=== PATIENT | female | born 1945 | race Caucasian/White ===

== ENCOUNTER 2024-02-23 15:35 | Emergency (ER) | payer MEDICARE, OTHER, SELFPAY ==
[2024-02-23 15:39] VITALS: BMI 22.0
[2024-02-23 15:40] VITALS: BP 150/98
[2024-02-23 16:09] LABS: % Basophils 0.6 % (0-2); % Eosinophils 0.9 % (0-6); % Immature Granulocytes 0.2 % (0-0.5); % Lymphocytes 16.9 % (20.5-51.1); % Monocytes 11.1 % (1.7-9.3); % Neutrophils 70.3 % (42.2-75.2); Absolute Basophils 0.1 10^3/uL (0-0.2); Absolute Eosinophils 0.1 10^3/uL (0-0.7); Absolute Lymphocytes 1.5 10^3/uL (1.2-3.4); Absolute Neutrophils 6.1 10^3/uL (1.4-6.5); Hematocrit 40.6 % (37.0-47.0); Hemoglobin 13.4 g/dL (12.0-16.0); Mean Corpuscular Hgb 31.4 pg (27.0-31.0); Mean Corpuscular Volume 95.1 fL (81.0-99.0); Mean Platelet Volume 9.6 fL (7.4-10.4); Nucleated Red Blood Cells % 0 %; Platelet Count 238 10^3/uL (130-400); Red Blood Cell Count 4.27 10^6/uL (4.20-5.40); Red Cell Dist. Width 12.5 % (11.5-14.5); White Blood Cell Count 8.7 10^3/uL (4.8-10.8)
[2024-02-23 16:25] LABS: Blood Urea Nitrogen 29 mg/dl (7-17); Calcium 10.2 mg/dl (8.4-10.2); Carbon Dioxide 25 mmol/L (22-30); Chloride 108 mmol/L (98-107); Estimated Creatinine Clearance 47 ml/min; Glucose 103 mg/dl (70-99); Potassium 4.7 mmol/L (3.5-5.1); Sodium 139 mmol/L (135-145); eGFR > 60.00
[2024-02-23 16:26] LABS: Alcohol None Detected
--- NOTE | 2024-02-23 18:46 | ED.GENMED ---
Addendum entered and electronically signed by Jesus Saleem PA-C 02/26/24 08:57:
On cephalexin, appropriate per C&S
Original Note:
History of Present Illness
General
Chief Complaint: Psychiatric Problem
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
Exam Limitations: none
Time Seen by Provider: 02/23/24 17:55
Travel History
Have you had any contact with someone who has COVID-19?: No
Do you have any symptoms of coronavirus? Fever > 100 degrees, chills, cough, shortness of breath, sore throat, loss of taste or smell, muscle aches, or headache?: No
History of Present Illness
History of Present Illness:
This is a 78 year old female that is brought in by family with c/o Manic behavior. Spoke with Nurse Gould that is the directed of the aid service that helps care with patient. States that the pain has had periods of Paranoid behavior and manic
episodes. State that she is going after people, chocking herself, not taking her medication. States that they wanted to patient to go to [facility] but the was unable to get patient there. States that she is not eating,
resisting bathing. States that she has chronic depression. States that the police have been to the house 4 times due to her accusing her but this has been determined untrue. Patient denies that she is not taking her medication and that she
is not eating. States that she can speak for herself. Patient states that she has felt SOB and has diarrhea. Denies any fever, chills, chest pain, abd pain, nausea, vomiting, headache, dizziness, urinary burning.
Past History
Past History
ED Past Medical History: HTN, Hypercholesterolemia, Hypothyroidism and Other (bowel obstruction medically treated, Dry eyes, CBS Type of Parkinsons)
ED Past Surgical History: Gynecological (hysterectomy)
Social History
Tobacco: Non-smoker
Alcohol: None
Personal:
Living: with family
Review of Systems
Review of Systems
All Other Systems: ROS reviewed and negative except as documented in HPI and ROS
Constitutional: Reports no symptoms; Denies fever or chills
EENT: Reports no symptoms
Respiratory: Reports trouble breathing; Denies cough
Cardiac: Reports no symptoms; Denies chest pain
ABD/GI: Reports diarrhea; Denies abdominal pain, nausea or vomiting
: Reports no symptoms; Denies dysuria, frequency or urgency
Musculoskeletal: Reports no symptoms
Skin: Reports no symptoms
Neurological: Reports no symptoms; Denies dizzy or headache
Psychiatric: Reports no symptoms
Phy Exam
General Physical Exam
General Presentation: no apparent distress
General age: appears stated age
General Skin: warm and dry
General Habitus: debilitated and elderly
General Mental: alert
General Hydration: dry mucous membranes
ENT Exam
ENT Exam: TM's normal, pharynx normal and neck supple
Eye Exam
Eye Exam: EOMI
Cardiovascular Exam
Cardiovascular Exam: regular rate/rhythm, no edema and normal peripheral pulses
Pulmonary Exam
Pulmonary Exam: lungs clear, no respiratory distress, no rales, chest non tender, no crackles, no rhonchi, no wheezing and no cough
Gastrointestinal Exam
Gastrointestinal Exam: normal bowel sounds, non tender, soft, no organomegaly, no pulsatile mass and non distended
Musculoskeletal Exam
Musculoskeletal Exam: no edema and other (Contracture of left hand with limited arm movement)
Skin Exam
Skin Exam: normal color, warm/dry, no petechia and other (abrasion middle of back and left posterior shoulder)
Psychiatric Exam
Psychiatric Exam: normal mood/affect (Patient is cooperative and answering questions)
Course
Orders/Labs/Results
Orders:
Orders
02/23/24 15:47
EKG [Electrocardiogram (*1)] Urgent
Reason for Study: PreOp
02/23/24 15:48
EKG- Treatment ONCE
02/23/24 15:57
Alcohol Urgent
Basic Metabolic Panel Urgent
Complete Blood Count/With Diff Urgent
02/23/24 18:43
Crisis Consult Urgent
Reason for Consult: Manic, Paranoid,
02/23/24 18:45
0.9% Sodium Chloride 1000 ml [Nss] 1,000 ml IV BOLUS
02/23/24 19:32
Urinalysis Reflex To Culture Urgent
Date Specimen was Collected: 02/23/24
Time Specimen was Collected: 19:31
Urine Microscopic Reflex Cult Urgent
Urine Culture Urgent
JB Source: U
Specimen Description:
Date Specimen was Collected: 02/23/24
Time Specimen was Collected: 19:31
02/23/24 21:04
Cephalexin Monohydrate [Keflex] 500 mg PO NOW STA
Abnormal Lab Results
02/23/24 02/23/24
15:57 19:32
MCH 31.4 H pg
(27.0-31.0)
Absolute Monos (auto) 1.0 H 10^3/uL
(0.1-0.6)
Lymphocytes % 16.9 L %
(20.5-51.1)
Monocytes % 11.1 H %
(1.7-9.3)
Chloride 108 H mmol/L
(98-107)
BUN 29 H mg/dl
(7-17)
Glucose 103 H mg/dl
(70-99)
Urine Ketones 3+ A
(Negative)
Urine Nitrite (Reflex) Positive A
(Negative)
Urine Bilirubin 1+ A
(Negative)
Leukocyte Esterase Rfl 2+ A
(Negative)
Urine WBC (Reflex) 60-70 A /HPF
(0-5)
Urine Bacteria (Reflex) Many A
(Negative)
02/23/24 15:57
02/23/24 15:57
Dehydration. Glucose nonfasting. Negative for alcohol. Urine positive for infection.
Vital Signs
Initial and Last Documented VS:
Initial Vital Signs
Temp Pulse Resp BP Pulse Ox
98.5 F 82 16 150/98 98
02/23/24 15:40 02/23/24 15:40 02/23/24 15:40 02/23/24 15:40 02/23/24 15:40
Last Documented Vital Signs
Temp Pulse Resp BP Pulse Ox
98.5 F 72 18 138/78 95
02/23/24 15:40 02/23/24 22:55 02/23/24 22:55 02/23/24 22:55 02/23/24 22:55
MDM/Problems Addressed
Differential Diagnosis Includes:
Psychiatric problems,
MDM/Problems Addressed:
This is a 78 year old female that is brought in by family with c/o Psychiatric issues. Told by Bryanna ritchie Directer of the aid serves that helps care for patient that she has been having Manic episodes. States that she has been going after people,
trying to chock herself, not eating or taking baths.
Will check labs, urine and have Crisis see patient.
Back into see patient. Continue to wait on Crisis to see patient and . Explained that the patient has a urinary tract infection. Will start patient on an antibiotic.
Patient was seen by Crisis and they feel that this is more the case that the is unable to take care of the patient. at this time just wants to take the patient home. Encouraged home to follow up with the PCP and discussed the
[place]ibility [place] [facility] [place]. Patient will also be given a prescription for her UTi. Patient states that she has an appointment with her [facility] psych doctor tomorrow. Will discharge home.
Chronic conditions affecting care: Psychiatric illness
Acute Exacerbation and/or Progression of Chronic Illness: Psychiatric illness
*Pulse Oximetry
Patient hypoxic: no
*EKG
Interpreted by ED Provider?: Yes
Heart Rate: 72
Rate: normal
Rhythm: sinus
[place]: normal axis
Interval: normal interval
QRS Pattern: normal QRS
Ischemia: no ischemia
*Camera Engineer Interpretation
Rate: Camera Engineer- N/A
*Critical Care Note
Total Time (30-74mins, 75-104mins- exclusive of procedures): Not Applicable
ED Attending Note
-
Portions of this chart may have been created with voice recognition software.� Occasional wrong word or��sound alike� substitutions may have occurred due to the inherent limitations of voice recognition software.
Discharge Plan
Departure
Patient Disposition: Home (Routine Discharge)
Date of Disposition: 02/23/24
Time of Disposition: 21:58
Patient with high blood pressure during this ER visit?: Yes
Condition: Good
Covid-19: Not Applicable
Discharge Problem:
Acute UTI (urinary tract infection)
Instructions: Urinary Tract Infection, Adult ED, BLOOD PRESSURE
Prescriptions:
New
cephalexin 500 mg capsule
500 mg PO BID 7 Days Qty: 14 0RF
No Action
levothyroxine 50 MCG tablet
50 mcg PO DAILY
olmesartan-hydrochlorothiazide 1 EACH tablet
1 tab PO DAILY
aspirin 81 MG tablet,delayed release (DR/EC)
81 mg PO QPM
calcium carbonate [Oyster Shell Calcium 500] 500 MG tablet
500 mg PO DAILY
simvastatin 20 MG tablet
20 mg PO QPM
calcium carbonate [Antacid (calcium carbonate)] 1 TABLET tablet,chewable
1 tab PO Q4HPRN PRN (Reason: gerd)
simethicone [Gas-X Extra Strength] 125 MG tablet,chewable
125 mg PO TIDPRN PRN (Reason: gerd)
multivitamin with folic acid [Tab-A-Deepika] 1 TABLET tablet
1 tab PO DAILY
Azithromycin 250 MG Tablet
250 mg PO DAILY Qty: 4 0RF
Referrals:
Nader Huddleston MD [Family Provider] - Follow up in 2-3 days
Activity Restrictions/Additional Instructions:
As discussed, your blood work shows that you are dehydrated. Please increase your water intake to 8-8oz glasses daily. You also have a urinary tract infection. You have been given your first dose of antibiotic here and a prescription for home. You
have also been seen by Crisis here. Please follow up with the family doctor for recheck. IF YOU HAVE ANY OTHER CONCERNS PLEASE RETURN TO THE EMERGENCY ROOM.
Interventions
Interventions:
*Risk Screen - Suicide Last Done: 02/23/24 15:40
*General Assessment Last Done: 02/23/24 23:05
*Neglect/Abuse Screening Last Done: 02/23/24 15:40
ED- Fall Risk Assessment Last Done: 02/23/24 15:40
*ED COVID-19 Vaccine History Last Done: 02/23/24 23:05
*Nursing Disposition Last Done: 02/23/24 23:05
ED-Psychological Assessment Last Done: 02/23/24 20:13
Discharge Date and Time
Discharge Date/Time: 02/23/24 23:06
Print Language: NAURUAN
[2024-02-23] MEDS: NSS 1000 IV (19:31)
[2024-02-23 19:38] LABS: Urine Albumin Trace (Neg - Trace); Urine Bilirubin 1+ (Negative); Urine Character Slightly Cloudy (Clear); Urine Color Yellow; Urine Glucose Negative (Negative); Urine Ketone 3+ (Negative); Urine Leukocyte 2+ (Negative); Urine Nitrite Positive (Negative); Urine Occult Blood Negative (Negative); Urine Specific Gravity 1.025 (<1.030); Urine Urobilinogen 1+ (Neg - 1+)
[2024-02-23 19:43] LABS: Urine Red Blood Cell None Seen /HPF (0-2)
[2024-02-23 19:44] LABS: Urine Bacteria Many (Negative); Urine White Cell 60-70 /HPF (0-5)
[2024-02-23 20:13] VITALS: BP 140/78
[2024-02-23] MEDS: KEFLEX 500 MG PO (21:24)
[2024-02-23 22:55] VITALS: BP 138/78
== END 2024-02-23 23:06 | disposition home or self-care (01) ==
LOC: EMR 15:35
PROVIDERS: Clinical Nurse Specialist Family Health; Emergency Medicine; EMERGENCY PHYSICIAN Emergency Medicine; FAMILY PHYSICIAN Internal Medicine
DX: N39.0 Urinary tract infection, site not specified (principal); I10 Essential (primary) hypertension
CPT/HCPCS: 99284; 96360; 80048; 81003; 81015; 82077; 85025; 87086; 87088; 87186; 93005

== ENCOUNTER 2024-11-13 11:06 | Emergency (ER) | payer MEDICARE, OTHER, SELFPAY ==
[2024-11-13 11:19] VITALS: BP 146/64; BMI 18.7
--- NOTE | 2024-11-13 11:33 | EDRN ---
awaiting for call back from [facility], the pts is now at the pts bedside and per the he stated that staff from [facility] called him and stated that the pt was found out of her w/c and called EMS for a fall, the pt
is resting in stretcher in the lowest position, side rails up x2, call ho within reach, HOB elevated, no s/s of distress, the pts states that she has a 'special diet and eats pureed/chopped food and thickened liquids'
--- NOTE | 2024-11-13 11:40 | EDRN ---
staff from [facility] called this RN back and stated that staff there saw the pt falling out of her w/c and they ran toward her to try to help her but the pt fell out of her w/c and did hit her head, this RN notified Dr. Mcdermott who is
currently at the pts bedside
--- NOTE | 2024-11-13 11:45 | ED.GENMED ---
History of Present Illness
General
Chief Complaint: Fall
Source: patient and spouse
Exam Limitations: non verbal-adult
Time Seen by Provider: 11/13/24 11:40
History of Present Illness
History of Present Illness:
See MDM
Past History
Past History
ED Past Medical History: HTN, Hypercholesterolemia, Hypothyroidism and Other (bowel obstruction medically treated, Dry eyes, CBS Type of Parkinsons)
ED Past Surgical History: Gynecological (hysterectomy)
Social History
Tobacco: Non-smoker
Alcohol: None
Personal:
Living: with family
Phy Exam
Physical Exam
Physical Exam:
See MDM
Course
Orders/Labs/Results
Orders:
Orders
11/13/24 11:10
EKG [Electrocardiogram (*1)] Urgent
Reason for Study: Vertigo / Dizzy
11/13/24 11:11
EKG- Treatment ONCE
11/13/24 11:41
CT Head W/o Iv Contrast Urgent
Comment:
Reason For Exam: fall, head injury
11/13/24 11:45
CT Cervical Spine W/o Iv Contr Urgent
Comment:
Reason For Exam: fall, neck pain
Acetaminophen [Tylenol] 650 mg PO NOW STA
Shoulder, Right, Trauma [CR Shoulder, Trauma - Right] Urgent
Comment:
Reason For Exam: fall, R shoulder pain
Vital Signs
Initial and Last Documented VS:
Initial Vital Signs
Pulse Pulse Ox
70 99
11/13/24 11:10 11/13/24 11:10
Last Documented Vital Signs
Temp Pulse Resp BP Pulse Ox
98.0 F 83 20 192/87 99
11/13/24 11:19 11/13/24 12:00 11/13/24 12:00 11/13/24 12:00 11/13/24 12:00
MDM/Problems Addressed
Differential Diagnosis Includes:
HPI and MDM Narrative:
79-year-old female presenting for evaluation after a fall. The nursing staff called indicating that her wheelchair hit her head. Pt is nonverbal but can moan 'yes or no'
It appears the patient is complaining mostly of neck pain.
Obtain CT head and neck she is also complaining of right shoulder pain. Although I cannot reproduce any bony tenderness, will obtain x-ray. She has no hip tenderness or pain with leg logrolling
Physical exam
General: Lying in bed comfortably
HEENT: protecting airway
Neck: appears supple
CV: No evidence of cyanosis
Resp: No accessory muscle use
Abd: Non-distended
Extremities: No deformities. No pain with palpation to shoulders or hips
Neuro: alert
Psych: flat affect
Skin: Intact
Problems Addressed including Acute and Chronic Conditions affecting care:
1. Fall and head injury
Acuity: acute
Prognosis: stable
Details: Will obtain CT head and neck. Given the complaint of shoulder pain, will obtain shoulder x-ray as well
Updates
Shoulder x-ray negative. CT head and neck negative. Will set up ride back home. comfortable with plan
Differential Diagnosis (but not limited to): Contusion, intracranial hemorrhage, concussion, fracture
Testing considered: Hip x-rays but she denies pain and I cannot reproduce any pain
Drug therapy (if applicable): OTC meds, please see d/c instruction regarding Rx drugs
Amount and/or Complexity of Data Reviewed
Clinical info obtained from: Patient and
External data reviewed: N/A
Labs I independently reviewed (but not limited to): N/A
Radiology: The CT scan was personally and independently reviewed. In addition, official CT report reviewed.
X-ray independently reviewed: No fracture noted on right shoulder x-ray
Pulse Ox: not hypoxic
EKG independently reviewed: N/A
Middleware Developer: N/A
Critical Care: N/A
Risk of Complication:
Social Determinants of health: Good social support
Discussed with other providers: N/A
Escalation of Care includes Admit/Obs: After being observed in the Emergency Department, pt stable for discharge.
Occasional wrong word or 'sound a like' substitutions may have occurred due to the inherent limitations of voice recognition software. Read the chart carefully and recognize, using context, where substitutions have occurred.
*Critical Care Note
Total Time (30-74mins, 75-104mins- exclusive of procedures): Not Applicable
ED Attending Note
-
Portions of this chart may have been created with voice recognition software.� Occasional wrong word or��sound alike� substitutions may have occurred due to the inherent limitations of voice recognition software.
Discharge Plan
Departure
Patient Disposition: Home (Routine Discharge)
Date of Disposition: 11/13/24
Time of Disposition: 13:33
Patient with high blood pressure during this ER visit?: Yes
Discharge Problem:
Head injury
Instructions: Head Injury in Adults (DC), BLOOD PRESSURE
Prescriptions:
No Action
levothyroxine 50 MCG tablet
50 mcg PO DAILY
simvastatin 20 MG tablet
20 mg PO QPM
metoprolol succinate 50 mg Tablet Extended Release 24 Hr
50 mg PO DAILY
clonazepam 0.5 mg Tablet
0.5 mg PO DAILY
amlodipine 2.5 mg Tablet
2.5 mg PO DAILY
magnesium hydroxide [Milk of Magnesia] 400 mg/5 mL Suspension
400 mg PO DAILY PRN (Reason: contipation)
bisacodyl 10 mg Suppository
10 mg TN DAILY PRN (Reason: constipation)
escitalopram oxalate 20 mg Tablet
20 mg PO DAILY
senna 8.6 mg Capsule
8.6 mg PO HS PRN (Reason: constipation)
melatonin 5 mg Tablet
5 mg PO HS
Referrals:
Luis Huddleston, DO [Family Provider] -
Activity Restrictions/Additional Instructions:
Please return for any worsening symptoms.
You may return at any time if you have further concerns.
Please follow up with your doctor at the first available appointment, preferably this week.
Thank you for choosing [facility].
Interventions
Interventions:
*Risk Screen - Suicide Last Done: 11/13/24 11:19
*General Assessment Last Done: 11/13/24 11:19
*Neglect/Abuse Screening Last Done: 11/13/24 11:19
ED- Fall Risk Assessment Last Done: 11/13/24 11:19
*ED COVID-19 Vaccine History Last Done: 11/13/24 11:19
ED-Musculoskeletal Assessment Last Done: 11/13/24 11:19
ED- Neurological Assessment Last Done: 11/13/24 11:19
ED-Skin Assessment Last Done: 11/13/24 11:19
Discharge Date and Time
Print Language: KAZAKH
[2024-11-13 12:00] VITALS: BP 192/87
--- NOTE | 2024-11-13 12:18 | EDRN ---
the pt is refusing to take oral Tylenol, the pt will not open her mouth despite this RN crushing tylenol and putting it in apple sauce per the pts husbands request, this RN notified Dr. Mcdermott
[2024-11-13 13:49] VITALS: BP 134/60
[2024-11-13 14:00] VITALS: BP 136/71
== END 2024-11-13 14:07 | disposition home or self-care (01) ==
LOC: EMR 11:06
PROVIDERS: EMERGENCY PHYSICIAN Student in an Organized Health Care Education/Training Program; FAMILY PHYSICIAN Internal Medicine
DX: S09.90XA Unspecified injury of head, initial encounter (principal); W19.XXXA Unspecified fall, initial encounter; I10 Essential (primary) hypertension; E03.9 Hypothyroidism, unspecified; R03.0 Elevated blood-pressure reading, without diagnosis of hypertension
CPT/HCPCS: 99285; 70450; 72125; 73030; 93005

== ENCOUNTER 2024-11-28 14:25 | Emergency (ER) | payer MEDICARE, OTHER, SELFPAY ==
[2024-11-28 14:29] VITALS: BP 119/70; BMI 18.2
[2024-11-28 15:00] VITALS: BP 115/62
[2024-11-28 16:00] VITALS: BP 121/72
--- NOTE | 2024-11-28 16:17 | ED.GENMED ---
History of Present Illness
<Mirna Adrian PA-C - Last Filed: 11/28/24 19:47>
General
Chief Complaint: Head Injury
Source: patient
Exam Limitations: none
Time Seen by Provider: 11/28/24 14:39
Nursing documentation reviewed up to this point in time: agreed with
History of Present Illness
History of Present Illness:
Patient is a 79-year-old female with history Parkinson's, hypertension presenting to the emergency department after unwitnessed fall. Patient unable to contribute much to history given history of dementia and Parkinson's. Patient's is at
bedside he states he was called by facility with report that she had fallen out of wheelchair and hit her head. It is unknown if this fall was witnessed.
Patient essentially nonverbal although able to nod yes/no same answers. Patient does answer yes to headache. Patient denies any chest pain or shortness of breath. No pain in bilateral upper or lower extremities.
Patient not on any blood thinners
Past History
<Mirna Adrian PA-C - Last Filed: 11/28/24 19:47>
Past History
ED Past Medical History: HTN, Hypercholesterolemia, Hypothyroidism and Other (bowel obstruction medically treated, Dry eyes, CBS Type of Parkinsons)
ED Past Surgical History: Gynecological (hysterectomy)
Social History
Tobacco: Non-smoker
Alcohol: None
Personal:
Living: with family
Review of Systems
<Mirna Adrian PA-C - Last Filed: 11/28/24 19:47>
Review of Systems
Allergies reviewed?: Yes
All Other Systems: ROS reviewed and negative except as documented in HPI and ROS
Phy Exam
<Mirna Adrian PA-C - Last Filed: 11/28/24 19:47>
Physical Exam
Physical Exam:
GENERAL: No acute distress
HEENT: Ecchymoses and small hematoma to right frontal scalp, extraocular muscles intact, no signs of entrapment, dentition intact, no other obvious trauma
NECK: no midline tenderness, normal range of motion, no other obvious trauma
BACK: no midline tenderness, no other obvious trauma,
CHEST: no tenderness, no flail segment, no subcutaneous emphysema, no other obvious trauma
LUNGS: clear to auscultation bilaterally
CARDIOVASCULAR: regular rate and rhythm
ABDOMEN: soft, non-tender, no masses, no other obvious trauma
PELVIS: stable, no obvious injury
EXTREMITIES: Left upper extremity contracted. Right upper extremity atraumatic and nontender w/ full range of motion. Bilateral lower extremities atraumatic and nontender full range of motion, specifically no pain with internal/external rotation
of bilateral hips. Bilateral upper and lower extremities neurovascularly intact. Palpable DP pulses bilaterally
NEUROLOGIC: awake. Contracted left upper extremity. No other focal neurologic abnormalities
Course
<Mirna Adrian PA-C - Last Filed: 11/28/24 19:47>
Orders/Labs/Results
Orders:
Orders
11/28/24 15:01
CT Head W/o Iv Contrast Urgent
Comment:
Reason For Exam: fall, head strike
Cervical Spine wo Contrast CT [CT Cervical Spine W/o Iv Contr] Urgent
Comment:
Reason For Exam: fall, head strike
Acetaminophen [Tylenol] 650 mg PO NOW STA
11/28/24 15:33
Acetaminophen [Tylenol Oral Solution] 650 mg PO NOW STA
Vital Signs
Initial and Last Documented VS:
Initial Vital Signs
Temp Pulse Resp BP Pulse Ox
97.7 F 67 18 119/70 100
11/28/24 14:29 11/28/24 14:29 11/28/24 14:29 11/28/24 14:29 11/28/24 14:29
Last Documented Vital Signs
Temp Pulse Resp BP Pulse Ox
97.7 F 66 18 146/73 99
11/28/24 14:29 11/28/24 16:00 11/28/24 16:00 11/28/24 18:00 11/28/24 17:36
<eLticia Joy DO - Last Filed: 11/28/24 17:20>
Orders/Labs/Results
Orders:
Orders
11/28/24 15:01
CT Head W/o Iv Contrast Urgent
Comment:
Reason For Exam: fall, head strike
Cervical Spine wo Contrast CT [CT Cervical Spine W/o Iv Contr] Urgent
Comment:
Reason For Exam: fall, head strike
Acetaminophen [Tylenol] 650 mg PO NOW STA
11/28/24 15:33
Acetaminophen [Tylenol Oral Solution] 650 mg PO NOW STA
Vital Signs
Initial and Last Documented VS:
Initial Vital Signs
Temp Pulse Resp BP Pulse Ox
97.7 F 67 18 119/70 100
11/28/24 14:29 11/28/24 14:29 11/28/24 14:29 11/28/24 14:29 11/28/24 14:29
Last Documented Vital Signs
Temp Pulse Resp BP Pulse Ox
97.7 F 66 18 146/73 99
11/28/24 14:29 11/28/24 16:00 11/28/24 16:00 11/28/24 18:00 11/28/24 17:36
<Mirna Adrian PA-C - Last Filed: 11/28/24 19:47>
MDM/Problems Addressed
Differential Diagnosis Includes:
Not limited to: Scalp contusion, concussion, intracerebral hemorrhage, cervical spine fracture, etc.
MDM/Problems Addressed:
79-year-old female presenting from long-term after unwitnessed fall with suspected head strike. Patient essentially nonverbal given history of dementia and Parkinson's although does nod yes/no. Patient arrives with stable vital signs. Did
contact facility who states patient seemed to fall out of her wheelchair striking the right side of her head on the ground. This was not witnessed although they do not believe she lost consciousness. On exam�patient is well-appearing, in no
apparent distress. She does have ecchymoses and hematoma noted to right frontal scalp. No cervical spine tenderness. No evidence of extremity injury. Abdomen soft and nontender. Chest wall nontender with clear lung sounds bilaterally. Patient
appears neurologically at her baseline. Given age and evidence of trauma�will obtain CT head and cervical spine. Tylenol for headache. Will closely monitor and reassess.
Update: CT head and cervical spine without any acute abnormalities. Scalp contusion noted on right frontal scalp. Patient has remained hemodynamic stable at her baseline. Feel stable for discharge back to facility with close return precautions.
Patient seen with attending physician.
Chronic conditions affecting care:
Parkinson's, dementia
Acute Exacerbation and/or Progression of Chronic Illness:
N/A
<Mirna Adrian PA-C - Last Filed: 11/28/24 19:47>
*Radiology
Radiology exam reviewed: radiology read reviewed
*Pulse Oximetry
Patient hypoxic: no
*EKG
Interpreted by ED Provider?: NA
*Pewter Finisher Interpretation
Rate: Pewter Finisher- N/A
*Critical Care Note
Total Time (30-74mins, 75-104mins- exclusive of procedures): Not Applicable
ED Attending Note
<Mirna Adrian PA-C - Last Filed: 11/28/24 19:47>
-
Portions of this chart may have been created with voice recognition software.� Occasional wrong word or��sound alike� substitutions may have occurred due to the inherent limitations of voice recognition software.
<Leticia Joy DO - Last Filed: 11/28/24 17:20>
ED Attending Note
Patient seen and examined by attending physician: Yes
I performed the substantive portion of visit, reviewed & personally made and approve the management plan that is documented in note by myself or ERNESTO.: Yes
I performed a history and physical exam of patient and discussed management with resident, I reviewed resident's note and agree with documented findings and plan of care.: Yes
ED Attending Note:
79-year-old female with history of Parkinson's presenting for unwitnessed fall out of wheelchair prior to arrival. Patient difficult historian given her Parkinson's disease. Arrives with evidence of hematoma to the right side of the head. No any
blood thinners. Vital signs within normal limits.
On exam, patient is resting comfortably, no acute distress. Patient does have signs of head trauma with hematoma to the right side of head. No additional signs of trauma to extremities. No tenderness to the chest/abdomen/pelvis. No midline
cervical neck tenderness. Plan for CT head imaging given age and evidence of trauma.
17:20 - CT negative. Remained stable. Plan for discharge.
Discharge Plan
Departure
Patient Disposition: Home (Routine Discharge)
Date of Disposition: 11/28/24
Time of Disposition: 17:48
Patient with high blood pressure during this ER visit?: No
Condition: Good
Covid-19: Not Applicable
Discharge Problem:
Contusion of scalp, Head injury
Instructions: Head Injury in Adults (DC), Contusion (DC)
Prescriptions:
No Action
levothyroxine 50 MCG tablet
50 mcg PO DAILY
simvastatin 20 MG tablet
20 mg PO QPM
metoprolol succinate 50 mg Tablet Extended Release 24 Hr
50 mg PO DAILY
clonazepam 0.5 mg Tablet
0.5 mg PO DAILY
amlodipine 2.5 mg Tablet
2.5 mg PO DAILY
magnesium hydroxide [Milk of Magnesia] 400 mg/5 mL Suspension
400 mg PO DAILY PRN (Reason: contipation)
bisacodyl 10 mg Suppository
10 mg [place] DAILY PRN (Reason: constipation)
escitalopram oxalate 20 mg Tablet
20 mg PO DAILY
senna 8.6 mg Capsule
8.6 mg PO HS PRN (Reason: constipation)
melatonin 5 mg Tablet
5 mg PO HS
Referrals:
Luis Huddleston, [Family Provider] - Follow up in 5-7 days
Activity Restrictions/Additional Instructions:
Return to the emergency department with any severe headache/neck pain, intractable nausea/vomiting, changes in mental status, worsening of current symptoms, or any other concerns
-As discussed�your head CT and CT of your cervical spine showed no evidence of acute abnormalities. You were found to have a contusion to your scalp.
-You can take Tylenol as needed for discomfort. Stay well-hydrated
-Follow-up with your primary care for further evaluation/management and to ensure that symptoms are improving
Monitor your symptoms closely return to the emergency department any acute worsening/new symptoms or any other
Interventions
Interventions:
*Risk Screen - Suicide Last Done: 11/28/24 14:29
*General Assessment Last Done: 11/28/24 14:29
*Neglect/Abuse Screening Last Done: 11/28/24 14:29
ED- Fall Risk Assessment Last Done: 11/28/24 14:29
*ED COVID-19 Vaccine History Last Done: 11/28/24 14:29
ED- Neurological Assessment Last Done: 11/28/24 14:29
ED-Skin Assessment Last Done: 11/28/24 14:29
Discharge Date and Time
Print Language: UZBEK
[2024-11-28] MEDS: TYLENOL ORAL SOLUTION 650 MG PO (16:29)
[2024-11-28 17:00] VITALS: BP 109/61
[2024-11-28 18:00] VITALS: BP 146/73
[2024-11-28 21:20] VITALS: BP 142/76
== END 2024-11-28 21:22 ==
LOC: EMR 14:25
PROVIDERS: EMERGENCY PHYSICIAN Student in an Organized Health Care Education/Training Program; FAMILY PHYSICIAN Internal Medicine
DX: S00.03XA Contusion of scalp, initial encounter (principal); W05.0XXA Fall from non-moving wheelchair, initial encounter; F02.80 Dementia in other diseases classified elsewhere, unspecified severity, without behavioral disturbance, psychotic disturbance, mood disturbance, and anxiety; G20.A1 Parkinson's disease without dyskinesia, without mention of fluctuations; I10 Essential (primary) hypertension; E78.00 Pure hypercholesterolemia, unspecified; E03.9 Hypothyroidism, unspecified
CPT/HCPCS: 99284; 70450; 72125

== ENCOUNTER 2024-12-09 10:58 | Emergency (ER) | payer MEDICARE, OTHER, SELFPAY ==
[2024-12-09 11:02] VITALS: BP 131/72
--- NOTE | 2024-12-09 11:18 | ED.GENMED ---
History of Present Illness
General
Chief Complaint: Fall
Source: ambulance crew
Exam Limitations: dementia
Time Seen by Provider: 12/09/24 11:11
History of Present Illness
History of Present Illness:
79yoF with a history of dementia (nonverbal at baseline), Parkinson's disease, hypertension, hyperlipidemia, and hypothyroidism presenting via EMS for evaluation after a fall. Patient is a resident at the [facility]. She reportedly threw
herself out of her wheelchair this morning and struck the front of her face on the floor. No reported LOC. She has a minor abrasion to the nose on arrival. She does not take any blood thinners.
Past History
Past History
ED Past Medical History: HTN, Hypercholesterolemia, Hypothyroidism and Other (bowel obstruction medically treated, Dry eyes, CBS Type of Parkinsons)
ED Past Surgical History: Gynecological (hysterectomy)
Social History
Tobacco: Non-smoker
Alcohol: None
Personal:
Living: with family
Phy Exam
General Physical Exam
General Presentation: well appearing and no apparent distress
General age: appears stated age
General Skin: warm and dry
General Habitus: normal
General Mental: alert
ENT Exam
ENT Exam: other (Nasal abrasion present. No epistaxis. No other external signs of head trauma. )
Eye Exam
Eye Exam: PERRL
Pulmonary Exam
Pulmonary Exam: lungs clear, no respiratory distress, no rales, chest non tender, no rhonchi and other (No chest wall tenderness or crepitus. Bilateral breath sounds equal. )
Gastrointestinal Exam
Gastrointestinal Exam: non tender, soft and non distended
Neurological Exam
Neurological Exam: alert and other (Alert, making eye contact, non-verbal at baseline)
Musculoskeletal Exam
Musculoskeletal Exam: other (No C/T/L spine tenderness or step-offs)
Skin Exam
Skin Exam: normal color and warm/dry
Course
Orders/Labs/Results
Orders:
Orders
12/09/24 11:15
CT Cervical Spine W/o Iv Contr Urgent
Comment:
Reason For Exam: fall with head injury
CT Facial Bones W/o Iv Contras Urgent
Comment:
Reason For Exam: nasal injury
CT Head W/o Iv Contrast Urgent
Comment:
Reason For Exam: fall with head injury
Vital Signs
Initial and Last Documented VS:
Initial Vital Signs
Temp Pulse Resp Pulse Ox
97.9 F 61 18 100
12/09/24 11:01 12/09/24 11:01 12/09/24 11:01 12/09/24 11:01
Last Documented Vital Signs
Temp Pulse Resp BP Pulse Ox
97.9 F 51 13 131/72 99
12/09/24 11:01 12/09/24 11:30 12/09/24 11:30 12/09/24 11:02 12/09/24 11:30
MDM/Problems Addressed
Differential Diagnosis Includes:
79yoF here after a fall out of her wheelchair this morning. Hx of dementia, non-verbal at baseline. VSS. Minor nasal abrasion noted. No other injuries appreciated on exam. Differential diagnosis includes but is not limited to: Abrasion, closed head
injury, fracture, intracranial hemorrhage
Initial ED plan: Check CT head, facial bones, and cervical spine.
*Critical Care Note
Total Time (30-74mins, 75-104mins- exclusive of procedures): Not Applicable
Update Note
Update Note:
Imaging negative for traumatic injuries. Patient is stable for discharge back to her nursing facility.
ED Attending Note
-
Portions of this chart may have been created with voice recognition software.� Occasional wrong word or��sound alike� substitutions may have occurred due to the inherent limitations of voice recognition software.
Discharge Plan
Departure
Patient Disposition: Home (Routine Discharge)
Date of Disposition: 12/09/24
Time of Disposition: 12:32
Patient with high blood pressure during this ER visit?: No
Discharge Problem:
Accidental fall from wheelchair, Abrasion of nose
Instructions: Head Injury in Adults (DC)
Prescriptions:
No Action
levothyroxine 50 MCG tablet
50 mcg PO DAILY
simvastatin 20 MG tablet
20 mg PO QPM
metoprolol succinate 50 mg Tablet Extended Release 24 Hr
50 mg PO DAILY
clonazepam 0.5 mg Tablet
0.5 mg PO DAILY
amlodipine 2.5 mg Tablet
2.5 mg PO DAILY
magnesium hydroxide [Milk of Magnesia] 400 mg/5 mL Suspension
400 mg PO DAILY PRN (Reason: contipation)
bisacodyl 10 mg Suppository
10 mg [place] DAILY PRN (Reason: constipation)
escitalopram oxalate 20 mg Tablet
20 mg PO DAILY
senna 8.6 mg Capsule
8.6 mg PO HS PRN (Reason: constipation)
melatonin 5 mg Tablet
5 mg PO HS
Referrals:
Luis Huddleston, DO [Family Provider] -
Activity Restrictions/Additional Instructions:
Imaging negative for any injuries.
Please follow-up with your family doctor and return to the ER with any worsening symptoms.
Interventions
Interventions:
*Risk Screen - Suicide Last Done: 12/09/24 11:01
*General Assessment Last Done: 12/09/24 11:01
*Neglect/Abuse Screening Last Done: 12/09/24 11:01
ED- Fall Risk Assessment Last Done: 12/09/24 11:01
*ED COVID-19 Vaccine History Last Done: 12/09/24 11:01
ED-Musculoskeletal Assessment Last Done: 12/09/24 11:01
ED- Neurological Assessment Last Done: 12/09/24 11:01
ED-Skin Assessment Last Done: 12/09/24 11:01
Discharge Date and Time
Print Language: MOLDOVAN
== END 2024-12-09 14:05 ==
LOC: EMR 10:58
PROVIDERS: EMERGENCY PHYSICIAN Emergency Medicine; FAMILY PHYSICIAN Internal Medicine
DX: S00.31XA Abrasion of nose, initial encounter (principal); W05.0XXA Fall from non-moving wheelchair, initial encounter; F02.80 Dementia in other diseases classified elsewhere, unspecified severity, without behavioral disturbance, psychotic disturbance, mood disturbance, and anxiety; G20.A1 Parkinson's disease without dyskinesia, without mention of fluctuations; E03.9 Hypothyroidism, unspecified; I10 Essential (primary) hypertension; E78.00 Pure hypercholesterolemia, unspecified
CPT/HCPCS: 99284; 70450; 70486; 72125

== ENCOUNTER 2024-12-17 08:26 | Emergency (ER) | payer MEDICARE, OTHER, SELFPAY ==
[2024-12-17] VITALS (9 sets, daily range): BP systolic 142–168; BP diastolic 75–118; BMI 15.4
--- NOTE | 2024-12-17 08:30 | ED.GENMED ---
History of Present Illness
General
Chief Complaint: Fall
Source: records, ambulance crew and [facility]
Exam Limitations: dementia
Time Seen by Provider: 12/17/24 08:28
Nursing documentation reviewed up to this point in time: agreed with
History of Present Illness
History of Present Illness:
79-year-old female with a past medical history of hypertension, hyperlipidemia, dementia who presents to the emergency room from [facility]; she presents for evaluation after being found down. Patient cannot meaningfully participate
in history due to severe dementia. Per [facility] report she was found down on the ground this morning. Unknown downtime. No apparent injuries. She is not on blood thinners. She is apparently at her baseline mental status. Chart review shows
that she has had multiple visits in the past month for falls.
Past History
Past History
ED Past Medical History: HTN, Hypercholesterolemia, Hypothyroidism and Other (bowel obstruction medically treated, Dry eyes, CBS Type of Parkinsons)
ED Past Surgical History: Gynecological (hysterectomy)
Social History
Tobacco: Non-smoker
Alcohol: None
Personal:
Living: with family
Review of Systems
Review of Systems
Unable to obtain full review of systems at this time due to: dementia
All Other Systems: Not applicable
Phy Exam
Physical Exam
Physical Exam:
General: Sitting in bed awake, moans/groans to questioning or touch but no meaningful verbal response
Head: Normocephalic, atraumatic
Eyes: Conjunctiva normal, pupils equal round and reactive to light bilaterally
Throat: Airway intact, handling secretions
Neck: Trachea midline, no apparent cervical spine tenderness
Back: No bruising or abrasions to the back, no apparent tenderness in the thoracic or lumbar region and no spinal step-offs
Lungs: Breathing comfortably no distress
Heart: Regular rate; no apparent chest wall tenderness, no ecchymosis, crepitus or instability
Abd: Soft, non distended, no apparent tenderness
Extremities: No deformities or signs of acute trauma, no apparent pain on passive range of motion of the upper and lower extremities including in the hips; no edema in extremities, equal pulses in all extremities
Scores
Heart Failure Risk
Heart Failure Risk Score: Not Applicable
Heart Score for Chest Pain Patients
STEMI patient?: Not applicable
Withdrawal Assessment of Alcohol
Withdrawal Assessment Completed?: Not applicable
Course
Orders/Labs/Results
Orders:
Orders
12/17/24 08:29
Electrocardiogram (*1) Urgent
Reason for Study: Fatigue / Weakness
CT Cervical Spine W/o Iv Contr Urgent
Comment:
Reason For Exam: unwitnessed fall
CT Head W/o Iv Contrast Urgent
Comment:
Reason For Exam: unwitnessed fall
EKG- Treatment ONCE
12/17/24 08:36
CPK [Creatine Phosphokinase] Urgent
Complete Blood Count/With Diff Urgent
Comprehensive Metabolic Panel Urgent
12/17/24 09:24
Urinalysis Reflex To Culture Urgent
Date Specimen was Collected: 12/17/24
Time Specimen was Collected: 08:35
Urine Microscopic Reflex Cult Urgent
Urine Culture Urgent
JB Source: U
Specimen Description:
Date Specimen was Collected: 12/17/24
Time Specimen was Collected: 08:35
12/17/24 10:52
CefTRIAXone [Rocephin] 1,000 mg IV NOW STA
Lorazepam [Ativan] 0.25 mg PO NOW STA
12/17/24 10:55
Lorazepam [Ativan] 0.25 mg IV NOW STA
Abnormal Lab Results
12/17/24 12/17/24
08:36 09:24
MCH 31.3 H pg
(27.0-31.0)
MCHC 32.9 L g/dL
(33.0-37.0)
Lymphocytes % 17.7 L %
(20.5-51.1)
BUN 27 H mg/dl
(7-17)
Calcium 10.4 H mg/dl
(8.4-10.2)
Urine Ketones 3+ A
(Negative)
Ur Occult Blood Reflex 4+ A
(Negative)
Urine Nitrite (Reflex) Positive A
(Negative)
Leukocyte Esterase Rfl 3+ A
(Negative)
Urine WBC (Reflex) >100 A /HPF
(0-5)
Urine Bacteria (Reflex) Many A
(Negative)
Urine Albumin (Reflex) 3+ A
(Neg - Trace)
12/17/24 08:36
12/17/24 08:36
Vital Signs
Initial and Last Documented VS:
Initial Vital Signs
Pulse Resp Pulse Ox
75 12 100
12/17/24 08:34 12/17/24 08:34 12/17/24 08:34
Last Documented Vital Signs
Temp Pulse Resp BP Pulse Ox
37.1 C 98 22 150/93 98
12/17/24 08:45 12/17/24 11:20 12/17/24 11:20 12/17/24 11:20 12/17/24 11:20
MDM/Problems Addressed
Differential Diagnosis Includes:
Unwitnessed fall, found down�rule out traumatic injuries, rhabdomyolysis; with frequent falls rule out secondary cause for fall such as electrolyte derangements, anemia, dysrhythmia, etc
MDM/Problems Addressed:
79-year-old female presents for evaluation after being found down at nursing facility. Unwitnessed fall unknown downtime. Vitals and exam as above. Does not appear to have any serious injuries on initial physical exam. Will check CT of the head
and cervical spine. Check labs including a CBC and a CMP, CPK. Will check an EKG. Check urinalysis. Reassess after the above.
CT head and cervical spine negative for any acute pathology. Labs reviewed and no clinically significant abnormalities. Her urinalysis is positive for infection which certainly could contribute to increased falls recently. Given a dose of
Rocephin here. Fortunately she has no signs of sepsis and stable vital signs I think she could reasonably be treated with outpatient antibiotics especially given that she lives in a monitored setting at [facility]. I called her to update
him on findings and plan. Will discharge back to [facility].
Chronic conditions affecting care:
Dementia
*Radiology
Radiology exam reviewed: radiology read reviewed
*Pulse Oximetry
Patient hypoxic: no
*EKG
Interpreted by ED Provider?: Yes
Heart Rate: 74
Rate: normal
Rhythm: sinus
[place]: normal axis
Interval: normal interval
QRS Pattern: normal QRS
Ischemia: non-specific ST changes
*Critical Care Note
Total Time (30-74mins, 75-104mins- exclusive of procedures): Not Applicable
Data Reviewed
Review of Other/Old Records Reveals: Labs and Records
Source: records, ambulance crew and [facility]
ED Attending Note
-
Portions of this chart may have been created with voice recognition software.� Occasional wrong word or��sound alike� substitutions may have occurred due to the inherent limitations of voice recognition software.
Discharge Plan
Departure
Patient Disposition: Home (Routine Discharge)
Date of Disposition: 12/17/24
Time of Disposition: 12:18
Patient with high blood pressure during this ER visit?: Yes
Discharge Problem:
Fall, Acute UTI
Instructions: Urinary tract infections in adults, Preventing falls in adults
Prescriptions:
New
cefdinir 300 mg capsule
300 mg PO BID Qty: 20 0RF
No Action
levothyroxine 50 MCG tablet
50 mcg PO DAILY
simvastatin 20 MG tablet
20 mg PO QPM
metoprolol succinate 50 mg Tablet Extended Release 24 Hr
50 mg PO DAILY
clonazepam 0.5 mg Tablet
0.5 mg PO BID
amlodipine 2.5 mg Tablet
2.5 mg PO DAILY
magnesium hydroxide [Milk of Magnesia] 400 mg/5 mL Suspension
400 mg PO DAILY PRN (Reason: contipation)
bisacodyl 10 mg Suppository
10 mg [place] DAILY PRN (Reason: constipation)
escitalopram oxalate 20 mg Tablet
20 mg PO DAILY
senna 8.6 mg Capsule
8.6 mg PO HS PRN (Reason: constipation)
melatonin 5 mg Tablet
5 mg PO HS
cholecalciferol (vitamin D3) 25 mcg (1,000 unit) Tablet
25 mcg PO DAILY
lorazepam 0.5 mg Tablet
0.25 mg PO Q6H PRN (Reason: anxiety)
Caltrate 600 plus D 600 mg-20 mcg (800 unit) Tablet,Chewable
1 tab PO DAILY
tramadol 25 mg Tablet
25 mg PO Q6H PRN (Reason: pain)
Referrals:
Nando Avina DO [Family Provider] - Follow up in 2-3 days
Activity Restrictions/Additional Instructions:
Thank you for visiting the Emergency Department at [facility].
1. Please schedule a follow up appointment as directed. Call first thing tomorrow morning to make an appointment.
2. If indicated, please take your medications as instructed and indicated on discharge paperwork.
3. If any of your symptoms do not improve, or persist, or become more severe within 6-12 hours, please return to the emergency department for further care.
4. Please return to the emergency department if you develop a headache, neck pain/stiffness, fever greater than 100.4F, chest pain, shortness of breath, persistent nausea, vomiting, slurred speech, difficulty walking, numbness/tingling, weakness,
signs of infection or any other symptoms that are worrisome to you.
Please call [phone] if you have any questions.
Interventions
Interventions:
*Risk Screen - Suicide Last Done: 12/17/24 08:45
*General Assessment Last Done: 12/17/24 08:45
*Neglect/Abuse Screening Last Done: 12/17/24 08:45
ED- Fall Risk Assessment Last Done: 12/17/24 08:45
*ED COVID-19 Vaccine History Last Done: 12/17/24 08:45
ED-Musculoskeletal Assessment Last Done: 12/17/24 08:45
ED- Neurological Assessment Last Done: 12/17/24 08:45
ED-Skin Assessment Last Done: 12/17/24 08:45
Discharge Date and Time
Print Language: ITALIAN
[2024-12-17 08:44] LABS: % Basophils 0.7 % (0-2); % Eosinophils 1.3 % (0-6); % Immature Granulocytes 0.4 % (0-0.5); % Lymphocytes 17.7 % (20.5-51.1); % Neutrophils 72.9 % (42.2-75.2); Absolute Basophils 0.1 10^3/uL (0-0.2); Absolute Eosinophils 0.1 10^3/uL (0-0.7); Absolute Lymphocytes 1.4 10^3/uL (1.2-3.4); Absolute Monocytes 0.5 10^3/uL (0.1-0.6); Absolute Neutrophils 5.6 10^3/uL (1.4-6.5); Hematocrit 40.4 % (37.0-47.0); Hemoglobin 13.3 g/dL (12.0-16.0); Mean Corp Hgb Conc. 32.9 g/dL (33.0-37.0); Mean Corpuscular Hgb 31.3 pg (27.0-31.0); Mean Corpuscular Volume 95.1 fL (81.0-99.0); Mean Platelet Volume 8.8 fL (7.4-10.4); Nucleated Red Blood Cells % 0 %; Platelet Count 261 10^3/uL (130-400); Red Blood Cell Count 4.25 10^6/uL (4.20-5.40); Red Cell Dist. Width 12.6 % (11.5-14.5); White Blood Cell Count 7.7 10^3/uL (4.8-10.8)
[2024-12-17 08:58] LABS: ALT (SGPT) 21 U/L (0-35); AST (SGOT) 23 U/L (14-36); Albumin 4.3 g/dl (3.5-5.0); Alkaline Phosphatase 108 U/L (38-126); Blood Urea Nitrogen 27 mg/dl (7-17); Calcium 10.4 mg/dl (8.4-10.2); Carbon Dioxide 28 mmol/L (22-30); Chloride 106 mmol/L (98-107); Creatine Phosphokinase 45 U/L (30-135); Estimated Creatinine Clearance 45 ml/min; Glucose 92 mg/dl (70-99); Potassium 4.8 mmol/L (3.5-5.1); Sodium 143 mmol/L (135-145); Total Bilirubin 0.6 mg/dl (0.2-1.3); Total Protein 7.2 g/dl (6.3-8.2); eGFR > 60.00
[2024-12-17 09:45] LABS: Urine Albumin 3+ (Neg - Trace); Urine Bilirubin Negative (Negative); Urine Character Cloudy (Clear); Urine Color Yellow; Urine Glucose Negative (Negative); Urine Ketone 3+ (Negative); Urine Leukocyte 3+ (Negative); Urine Nitrite Positive (Negative); Urine Occult Blood 4+ (Negative); Urine Specific Gravity 1.015 (<1.030); Urine Urobilinogen 1+ (Neg - 1+)
[2024-12-17 10:05] LABS: Urine Squamous Cell 0-2 /LPF (Few)
[2024-12-17 10:06] LABS: Urine Bacteria Many (Negative); Urine White Cell >100 /HPF (0-5)
[2024-12-17] MEDS: ATIVAN 0.25 MG IV (10:57)
[2024-12-17] MEDS: ROCEPHIN 1000 MG IV (10:57)
--- NOTE | 2024-12-17 12:27 | EDRN ---
this RN called Jerald Saleh at [phone] to give verbal report and this RN spoke with the nurse Isaura and Isaura verbally stated that she understood the discharge instructions
--- NOTE | 2024-12-17 13:49 | EDRN ---
verbal report was given to Acute Care staff
== END 2024-12-17 13:49 | disposition home or self-care (01) ==
LOC: EMR 08:26
PROVIDERS: EMERGENCY PHYSICIAN Emergency Medicine; FAMILY PHYSICIAN Internal Medicine Geriatric Medicine
DX: N39.0 Urinary tract infection, site not specified (principal); E03.9 Hypothyroidism, unspecified; E78.00 Pure hypercholesterolemia, unspecified; G20.A1 Parkinson's disease without dyskinesia, without mention of fluctuations; F02.C0 Dementia in other diseases classified elsewhere, severe, without behavioral disturbance, psychotic disturbance, mood disturbance, and anxiety; I10 Essential (primary) hypertension
CPT/HCPCS: 96374; 96375; 99284; 70450; 72125; 80053; 81003; 81015; 82550; 85025; 87086; 93005

== ENCOUNTER 2024-12-29 15:57 | Inpatient (IN) | payer MEDICARE, OTHER, SELFPAY ==
[2024-12-29] VITALS (12 sets, daily range): BP systolic 118–159; BP diastolic 71–99; BMI 14.3; BMI 15.4
[2024-12-29 13:13] LABS: Glucose - Point of Care 94 mg/dl (70-99)
[2024-12-29 13:13] LABS: % Basophils 0.7 % (0-2); % Eosinophils 0.8 % (0-6); % Immature Granulocytes 0.5 % (0-0.5); % Lymphocytes 16.1 % (20.5-51.1); % Monocytes 7.9 % (1.7-9.3); Absolute Basophils 0.1 10^3/uL (0-0.2); Absolute Eosinophils 0.1 10^3/uL (0-0.7); Absolute Immature Granulocytes 0.1 10^3/uL (0-0.05); Absolute Lymphocytes 1.8 10^3/uL (1.2-3.4); Absolute Monocytes 0.9 10^3/uL (0.1-0.6); Absolute Neutrophils 8.1 10^3/uL (1.4-6.5); Hematocrit 47.1 % (37.0-47.0); Hemoglobin 14.3 g/dL (12.0-16.0); Mean Corp Hgb Conc. 30.4 g/dL (33.0-37.0); Mean Corpuscular Hgb 30.6 pg (27.0-31.0); Mean Corpuscular Volume 100.6 fL (81.0-99.0); Mean Platelet Volume 10.4 fL (7.4-10.4); Nucleated Red Blood Cells % 0 %; Platelet Count 226 10^3/uL (130-400); Red Blood Cell Count 4.68 10^6/uL (4.20-5.40); Red Cell Dist. Width 13.1 % (11.5-14.5)
--- NOTE | 2024-12-29 13:14 | ED.GENMED ---
History of Present Illness
General
Chief Complaint: Change in Mental Status
Source: ambulance crew and [facility]
Exam Limitations: non verbal-adult
Time Seen by Provider: 12/29/24 13:07
History of Present Illness
History of Present Illness:
79-year-old female from [facility] with history of HTN, HLD, dementia, hypothyroid, here on 12/17/2024 and diagnosed with UTI and had fdinir 300 twice daily, here today for reported fever and lethargy.
Patient is unresponsive at this time, will not open her eyes but does flutter her eyelids
Past History
Past History
ED Past Medical History: HTN, Hypercholesterolemia, Hypothyroidism and Other (bowel obstruction medically treated, Dry eyes, CBS Type of Parkinsons)
ED Past Surgical History: Gynecological (hysterectomy)
Social History
Tobacco: Non-smoker
Alcohol: None
Personal:
[facility]
Review of Systems
Review of Systems
Allergies reviewed?: Yes
All Other Systems: ROS reviewed and negative except as documented in HPI and ROS
Constitutional: Reports fever (Temp 100 rectally here)
ABD/GI: Denies vomiting or diarrhea
: Reports incontinence
Musculoskeletal: Denies edema
Neurological: Reports other (Unresponsive to verbal commands at this time)
Phy Exam
Physical Exam
Physical Exam:
GENERAL: Patient is unresponsive to verbal commands
CONSTITUTIONAL: Temp 100 rectally
EYES: clear, conjunctivae normal, PERRL, have to hold eyelids open, she will not open her eyes. She does flutter her close eyelids at times though
ENMT: Dry mucus membranes,
RESPIRATORY: Regular respirations, nonlabored, lungs clear.
CARDIOVASCULAR: Regular rate and rhythm, no murmurs, no rubs.
GI: Soft, nontender, normal BS
MUSCULOSKELETAL: Well perfused. No edema
SKIN: Warm, dry, pink
PSYCH: Unresponsive
NEUROLOGIC: Unresponsive
Sepsis
Sepsis Screening
Sepsis Assessment: Sepsis Ruled Out
Sepsis Screen
Sepsis Screen: Sepsis Ruled Out
Date: 12/29/24
Time: 17:42
Course
Orders/Labs/Results
Orders:
Orders
12/29/24 12:25
Electrocardiogram (*1) Urgent
Reason for Study: Fatigue / Weakness
Cardiac Monitoring- Treatment ONCE
EKG- Treatment ONCE
IV Insert/Care/Rem.- Treatment PRN
Straight cath- Treatment ONCE
O2 Therapy [RESP] Urgent
Titrate/Wean O2 to maintain O2 sat greater than (%): 93
Special Instructions: TO MAINTAIN CONTINUOUS O2 SATS > OR = 93%
Pulse Ox/cont/shift [RESP] Urgent
Quantity: 1
Special Instructions: CONTINUOUS
12/29/24 12:50
Blood Culture Q20M
JB Source: Blood/Venous
Specimen Description:
Comment: Urgent from separate sites. If patient screens positive for possible sepsis
12/29/24 12:54
COVID-19 Antigen Urgent
Source: Nasal Swab
Complete Blood Count/With Diff Urgent
Comprehensive Metabolic Panel Urgent
Lactic Acid Q4H
Comment: ON ICE, CANCEL 2ND ORDER IF FIRST LACTIC ACID LEVEL <2
Magnesium Urgent
Comment: ADD ON
Osmolality, Random Urine Urgent
Date Specimen was Collected: 12/29/24
Time Specimen was Collected: 12:25
Comment: ADD ON
TSH Reflex To Free T4 Urgent
Comment: ADD ON
Urinalysis Reflex To Culture Urgent
Date Specimen was Collected: 12/29/24
Time Specimen was Collected: 12:25
Urine Creatinine Urgent
Date Specimen was Collected: 12/29/24
Time Specimen was Collected: 12:25
Comment: ADD ON
Urine Microscopic Reflex Cult Urgent
Urine Sodium Urgent
Date Specimen was Collected: 12/29/24
Time Specimen was Collected: 12:25
Comment: ADD ON
Blood Culture Q20M
JB Source: Blood/Venous
Specimen Description:
Comment: Urgent from separate sites. If patient screens positive for possible sepsis
INF RAPID [Influenza A+B Rapid Molecular] Urgent
JB Source: Nasal Swab
Specimen Description:
Urine Culture Urgent
JB Source: U
Specimen Description:
Date Specimen was Collected: 12/29/24
Time Specimen was Collected: 12:25
12/29/24 13:21
CT Head W/o Iv Contrast Urgent
Comment:
Reason For Exam: unresponsive, change in MS
12/29/24 13:42
Troponin I Urgent
12/29/24 14:34
CR Chest Portable - 1 View Urgent
Comment:
Reason For Exam: leukocytosis
Reason Study Needs to be Portable: Other
12/29/24 15:00
Dextrose 5%/Water 1000 ml [D5w] 1,000 ml IV 80 mls/hr
12/29/24 15:06
Admit/Transfer Patient As Directed
Co-Sign Provider:
Level of Care: Inpatient admission
Assign to:: Telemetry
Physician / Group: casi pope
Diagnosis: tme due to HyperNA 2/2 Dehydration, fever unclear
Reason for Telemetry: Arrhythmia
Date to Stop Telemetry: 01/01/25
Time to Stop Telemetry: 11:00
Reason for Hospitalization: tme due to HyperNA 2/2 Dehydration, fever unclear
Expected length of stay greater than two midnights?: Yes
ELOS- Estimated Length of Stay in days: 5
I certify the patient meets the requirements for IP care: Yes
Code Status As Directed
Resuscitation Status: Do not resuscitate
Reached after discussion with pt or family/Healthcare POA: Yes
Decision communicated with: Per NAVID via phone
Physician note:: He also states she never wanted a feeding tube
DNR Bracelet Application ONCE
12/29/24 15:11
PRN Pain Medication Management As Directed
May give lesser potent ordered pain med per pt: Yes
preference::
Protocol:: Medication orders for pain may be administered in a
manner that supports deferring to patient preference
when the pt is:
- Requesting an ordered lesser potent pain medication.
Least to most potent pain medications are defined
as: acetaminophen < NSAID < tramadol < opioids
(morphine, oxycodone, hydromorphone).
- Requesting a lesser dose of the same medication IF
ORDERED.
- Requesting a less intrusive route of administration
if both routes are prescribed by the provider (PO <
IV).
12/29/24 15:12
Add On- LAB Urgent
Tests Added?: tsh with free t4 reflex, mag
12/29/24 15:13
HydrALAZINE [Apresoline] 5 mg IV Q6HPRN PRN
12/29/24 15:21
NEPHROLOGY CONSULT Routine
Consulting Provider: Jesus Lyon
Was physician already notified: Yes
Reason for consult: hyper na
12/29/24 17:28
BMP [Basic Metabolic Panel] Q4H
Lactic Acid Q4H
Comment: ON ICE, CANCEL 2ND ORDER IF FIRST LACTIC ACID LEVEL <2
12/29/24 19:18
BMP [Basic Metabolic Panel] Q4H
12/29/24 23:18
BMP [Basic Metabolic Panel] Q4H
12/30/24 03:18
BMP [Basic Metabolic Panel] Q4H
12/30/24 07:18
BMP [Basic Metabolic Panel] Q4H
12/30/24 11:18
BMP [Basic Metabolic Panel] Q4H
12/30/24 15:18
BMP [Basic Metabolic Panel] Q4H
01/01/25 11:00
DC Protocol for Telemetry ONCE
Abnormal Lab Results
12/29/24 12/29/24
12:54 13:42
WBC 11.0 H 10^3/uL
(4.8-10.8)
Hct 47.1 H %
(37.0-47.0)
MCV 100.6 H fL
(81.0-99.0)
MCHC 30.4 L g/dL
(33.0-37.0)
Abs Immat Gran (auto) 0.1 H 10^3/uL
(0-0.05)
Absolute Neuts (auto) 8.1 H 10^3/uL
(1.4-6.5)
Absolute Monos (auto) 0.9 H 10^3/uL
(0.1-0.6)
Lymphocytes % 16.1 L %
(20.5-51.1)
Sodium 161 H* mmol/L
(135-145)
Chloride 124 H mmol/L
(98-107)
Carbon Dioxide 33 H mmol/L
(22-30)
BUN 72 H mg/dl
(7-17)
Glucose 113 H mg/dl
(70-99)
Lactic Acid 2.2 H mmol/L
(0.7-2.0)
Calcium 11.1 H mg/dl
(8.4-10.2)
Magnesium 2.8 H mg/dl
(1.6-2.3)
AST 104 H U/L
(14-36)
ALT 91 H U/L
(0-35)
Troponin I 0.042 H* ng/ml
Leukocyte Esterase Rfl 1+ A
(Negative)
Urine Albumin (Reflex) 1+ A
(Neg - Trace)
12/29/24 12:54
12/29/24 12:54
Vital Signs
Initial and Last Documented VS:
Initial Vital Signs
BP
139/87
12/29/24 12:21
Last Documented Vital Signs
Temp Pulse Resp BP Pulse Ox
100 F 97 23 135/90 99
12/29/24 12:29 12/29/24 16:30 12/29/24 16:30 12/29/24 16:00 12/29/24 16:30
MDM/Problems Addressed
Differential Diagnosis Includes:
electrolyte disturbance, UTI, dehydration, CVA
MDM/Problems Addressed:
79-year-old female from [facility] with history of HTN, HLD, dementia, hypothyroid, here on 12/17/2024 and diagnosed with UTI and had Cefdinir 300 twice daily, here today for reported fever and lethargy.
Patient is unresponsive at this time, will not open her eyes but does flutter her eyelids\\
EKG: New T wave inversion in inferior and anterolateral leads
CBC: No clinically significant abnormality
CMP: Hyponatremia with sodium of 161, Chloride 124 BUN 72 (water depletion hypernatremia vs. hypovolemia)
2:00 p.m.
Admit: Hypernatremia, Hyperchloremia, change in mental state
Hospitalist notified of admission
U/A pending
Head CT pending
*EKG
EKG Intrepretation Date: 12/29/24
Interpretation: abnormal
Comparison EKG: changes noted
Heart Rate: 87
Rate: normal
Rhythm: sinus
[place]: normal axis
Interval: normal interval
QRS Pattern: normal QRS
Ischemia: T-wave inversion
*Critical Care Note
Total Time (30-74mins, 75-104mins- exclusive of procedures): Not Applicable
ED Attending Note
-
Portions of this chart may have been created with voice recognition software.� Occasional wrong word or��sound alike� substitutions may have occurred due to the inherent limitations of voice recognition software.
Discharge Plan
Departure
Patient Disposition: Admit
Date of Disposition: 12/29/24
Time of Disposition: 14:03
Admit to: IMU
Presentation/result/management discussed w/ accepting MD/DO: Hospitalist
Condition: Serious
Discharge Problem:
Acute hypernatremia, Altered mental state
Interventions
Interventions:
*Risk Screen - Suicide Last Done: 12/29/24 12:29
*Neglect/Abuse Screening Last Done: 12/29/24 12:29
*ED- Fall Risk Assessment Last Done: 12/29/24 12:29
*ED COVID-19 Vaccine History Last Done: 12/29/24 12:29
ED- Neurological Assessment Last Done: 12/29/24 12:29
ED Swallowing Screen Last Done: 12/29/24 15:22
[2024-12-29 13:20] LABS: Urine Albumin 1+ (Neg - Trace); Urine Bilirubin Negative (Negative); Urine Character Clear (Clear); Urine Color Yellow; Urine Glucose Negative (Negative); Urine Ketone Negative (Negative); Urine Leukocyte 1+ (Negative); Urine Nitrite Negative (Negative); Urine Occult Blood Negative (Negative); Urine Urobilinogen Negative (Neg - 1+)
[2024-12-29 13:23] LABS: Lactic Acid 2.2 mmol/L (0.7-2.0)
[2024-12-29 13:28] LABS: ALT (SGPT) 91 U/L (0-35); AST (SGOT) 104 U/L (14-36); Albumin 4.2 g/dl (3.5-5.0); Alkaline Phosphatase 79 U/L (38-126); Blood Urea Nitrogen 72 mg/dl (7-17); Calcium 11.1 mg/dl (8.4-10.2); Carbon Dioxide 33 mmol/L (22-30); Chloride 124 mmol/L (98-107); Estimated Creatinine Clearance 28 ml/min; Glucose 113 mg/dl (70-99); Potassium 4.5 mmol/L (3.5-5.1); Sodium 161 mmol/L (135-145); Total Bilirubin 0.6 mg/dl (0.2-1.3); Total Protein 7.3 g/dl (6.3-8.2); eGFR 57.66
[2024-12-29 13:59] LABS: Urine Mucus Many
[2024-12-29 14:00] LABS: Urine Amorphous Seen
[2024-12-29 14:01] LABS: Urine Red Blood Cell 0-2 /HPF (0-2)
--- NOTE | 2024-12-29 14:09 | HPS.HSE ---
Family Physician
-
Family Physician: Cristofer Avina
Chief Complaint
-
Lethargy
History of Present Illness
79-year-old female from [facility] who was diagnosed with UTI at [place] on 12/17/2024 given cefdinir 300 mg twice daily. She returns today for reported fever and lethargy was asleep not responding during ER evaluation. Her
Freda states she was up in [facility] She seemed tired. She is fed by staff for the Past 2 months. The Patient has past medical history of dementia, hypertension, hyperlipidemia, hypothyroidism, bowel obstruction, dry eye syndrome, corticobasal
syndrome form of Parkinson's. Her states she communicates with thumbs up thumbs down or blinking of her eyes.
Medical History
Past Medical History
Past Medical History: Reports Other
Additional Past Medical History:
Dementia
Hypertension
Hyperlipidemia
Hypothyroidism
Bowel obstruction
Dry eye syndrome
Corticobasal syndrome form of Parkinson's
Hx falls
Past Surgical History: Reports Other (Hysterectomy)
Social History
Tobacco: Former Smoker (10 years approx per quit 25 years )
Alcohol: None
Drug: None
Personal:
Living: Group Home
Family History
Family History: Other (mother and maternal grandmother alzheimers, Father PA)
Allergies / Home Medications
Allergies reflects when Allergies were last updated in [employer].
Home Medications with original date entered in [employer]
Allergy/Medication List:
Allergies
Allergy/AdvReac Type Severity Reaction Status Date / Time
.seasonal allergies Allergy Unknown Uncoded 12/29/24 12:29
Home Medications
levothyroxine 50 mcg tablet 50 mcg PO DAILY 10/05/21
simvastatin 20 mg tablet 20 mg PO HS 10/05/21
amlodipine 2.5 mg tablet 2.5 mg PO DAILY 11/13/24
clonazepam 0.5 mg tablet 0.5 mg PO BID 11/13/24
escitalopram oxalate 20 mg tablet 20 mg PO DAILY 11/13/24
melatonin 5 mg tablet 5 mg PO HS 11/13/24
metoprolol succinate 50 mg tablet,extended release 24 hr 50 mg PO DAILY 11/13/24
cholecalciferol (vitamin D3) 25 mcg (1,000 unit) tablet 25 mcg PO DAILY 12/17/24
lorazepam 0.5 mg tablet 0.25 mg PO Q6HPRN PRN anxiety 12/17/24
tramadol 25 mg tablet 25 mg PO Q6HPRN PRN moderate pain 12/17/24
calcium 600 mg (as carbonate)-vitamin D3 10 mcg (400 unit) tablet (Calcium 600 + D(3)) 1 tab PO BID 12/29/24
sennosides 8.6 mg-docusate sodium 50 mg tablet (Senna-S) 2 tab-cap PO HSPRN PRN constipation 12/29/24
Review of Systems
-
History Source: Patient
A 12 point ROS was completed and negative except as noted: Yes
Constitutional: Reports Fever and Fatigue; Denies Chills
EENT: Denies Sore Throat
Respiratory: Denies Cough or Trouble Breathing
Cardiac: Denies Chest Pain, Diaphoresis, Palpitations or Syncope
Abdomen/GI: Denies Abdominal Pain, Nausea, Vomiting or Diarrhea
: Denies Dysuria, Frequency or Flank Pain
Musculoskeletal: Denies Joint Pain or Edema
Skin: Denies Itching or Rash
Neurological: Denies Dizzy or Headache
Endocrine: Reports No Symptoms
Hematologic/Lymphatic: Denies Bleeding
Psych: Reports Calm
Physical Exam
Vital Signs
Vital Signs
Temp Pulse Resp BP Pulse Ox
100 F 101 24 136/75 99
12/29/24 12:29 12/29/24 13:45 12/29/24 13:45 12/29/24 13:00 12/29/24 13:30
Physical Exam
General: Other (Extremely lethargic she 'mercedes' when asked if her name is Mara)
HEENT: NormoCephalic, Anicteric, PERRLA and Other (Dry oral mucosa)
Respiratory: Clear; No Wheezes, Rales, Rhonchi or Crackles
Cardiac: S1/S2 and Regular Rhythm; No Murmur, Rub, Gallop or Peripheral Edema
GI: Soft, Non Tender, Non Distended, Normal Bowel Sounds and No Hepatosplenomegaly
Genito-urinary: Deferred by me
Musculoskeletal: No Clubbing, Cyanosis and No Edema
Skin: Warm and Dry; No Rash
Neuro: Other (Extremely lethargic she 'mercedes' when asked if her name is Mara, neck leans to left side)
Psych: Calm and Other
Laboratory Results
-
12/29/24 12:54
12/29/24 12:54
Laboratory Results
Lactic Acid 2.2 mmol/L (0.7-2.0) H 12/29/24 12:54
Total Bilirubin 0.6 mg/dl (0.2-1.3) 12/29/24 12:54
AST 104 U/L (14-36) H 12/29/24 12:54
ALT 91 U/L (0-35) H 12/29/24 12:54
Alkaline Phosphatase 79 U/L (38-126) 12/29/24 12:54
Impression/Plan
-
IMpression/Plan:
Admit to MEd
#Change in mental status due to metabolic encephalopathy secondary to hyponatremia
#Severe HypoNatremia Due to Dehydration
2.5 liters water deficit
-Neurochecks every 4 hours
- d5w 80 cc/hr x 2 liters
follow bmp q4 hour
-Consult PT/OT/case management tomorrow 12/30/2024
#Leukocytosis with low-grade fever unclear source
Per temperature tends to run 99 current temp 100 F
WBC 11
-Check blood cultures x 2, CXR
-Follow CBC
#Recent UTI
12/17/24 started and then completed cefdinir
-UA negative
#Corticobasal syndrome form of Parkinson's Dx 2022 [facility]
#Hx Falls
-Transfers via wheelchair
#Dementia with mood disorders on chronic BENZO's
#Depression
-Stopped talking in Oct per
- screams occasionally
-Cont Lorazepam 0.25mg q8h IV to prevent BENZO withdrawal
-When able to swallow may resume lorazepam 0.25 mg every 8 hours as needed, clonazepam 0.5 mg p.o. twice daily, Lexapro 20 mg daily
-Is on pureed diet ,thickened liquids per , crushed meds with apple sauce or pudding
-Consult speech Swallow tomorrow 12/30/2024
#Hypertension
BP 136/75
-Continue metoprolol succinate 50 mg daily, amlodipine 2.5 mg daily with hold parameters if able to swallow tomorrow
IV as needed hydralazine SBP>165
#Hyperlipidemia
-Continue simvastatin 20 mg at bedtime
#Hypothyroidism
-Check TSH with free T4 reflex
-Continue levothyroxine 50 mcg p.o. daily
#Bowel obstruction
Continue senna 2 capsules at bedtime as needed constipation
# Dry eye syndrome
-Artificial tears
#Hx chronic pain
Hold tramadol 25 mg p.o. every 6 hours as needed moderate pain due to sedation
May give Tylenol as needed
#Insomnia
Hold melatonin due to sedation
DNR per FREDA
[2024-12-29 14:27] LABS: Troponin I 0.042 ng/ml
[2024-12-29 14:33] LABS: COVID-19 Antigen Negative (Negative)
--- NOTE | 2024-12-29 14:48 | W.PN.UPDATE ---
Update Note
Progress Note Update
I could not get any information from the patient id obtunded due to acute encephalopathy and dementia
Information gathered by chart review and speaking with the ER staff.
This note serves as an addendum to the H&P by casing crew ERNESTO
Debi PALM
HPI
79F [facility] [address], Dementia, non verbal, non ambulatory , HX PKDz Cortico basal syndrome form type, HX HTN, HLD, hypothyroid,at ER 12/17/2024 and diagnosed with UTI and had cefdinir 300 twice daily, here today for reported fever and lethargy.
Patient is unresponsive at this time, will not open her eyes but does flutter her eyelids
Reviewed VS:
VS
12/29/24
12:29 12/29/24
13:45
Temp 100 F
Pulse 77 101
Resp Rate 18 24
Blood pressure 139/87
SaO2 96
Oxygen Mode of Delivery Room air
PE
Obtunded
Gen: unresponsive to verbal commands
HEENT: Dry mucus membranes,she will not open her eyes. She does flutter her close eyelids at times though
Neck: Tilted to Left
Lungs: symmetric AE
Cor: RRR S1 S2 , ST
Abdomen: soft abdomen
FIRE DEPARTMENT BATTALION CHIEF: limited exam due to obtundation
MS: no edema
Psych: cannot examine due to AMS
Laboratory Tests
12/17/24 12/29/24 12/29/24
08:36 12:54 16:30
WBC 11.0 H
MCV 100.6 H
Sodium 161 H*
Chloride 124 H
Carbon Dioxide 28 33 H
BUN 72 H
Creatinine 1.0
eGFR 57.66
Glucose 113 H
Lactic Acid Pending
No prior hospitalist admission:
ASSESSMENT & PLAN
Pending Rx reconciliation
Change in MS due to acute obtunded metabolic encephalopathy due to hypernatremia
Hypernatremia due to FWD 2.6 L for admission Na 161 from dehydration and volume contraction
Associated contraction alkalosis & severe azotemia
Associated pre renal PATRICIA
Normotensive but tachycardic
- Hold FILTER WASHER Clonazepam BID but cont. FILTER WASHER PRN Lorazepam due to risk of acute BZD WDS
- Correct FWD: D5W @ 80/H for first 2 L, then f/u Na
- BMP q4Hrs
- Rate of Na correction: not more than 6 meq over 12hrs
- Precautions : Aspiration and Fall
- Renal consult
Low grade fever
Recent UTI treated with Cefdinir Current UA is bland
- BCx
- CXR
- Hold off ABX for now
Dementia
HX PKDz Cortico basal syndrome form type
Non verbal
Bed bound
NH res
- c/w FILTER WASHER supportive care
- Precautions : Aspiration and Fall
Known HX
Hypertension
Hyperlipidemia
Hypothyroidism
Bowel obstruction
DVT Px: LMWH
DNR per spouse per Tel conversation with
IP MS
[2024-12-29] MEDS: D5W 1000 IV (15:27)
[2024-12-29 16:07] LABS: Magnesium 2.8 mg/dl (1.6-2.3)
[2024-12-29 17:13] LABS: TSH Reflex To Free T4 1.08 uIU/ml (0.47-4.68)
--- NOTE | 2024-12-29 17:13 | W.CON.NEPH ---
Consultation
-
Date/Time Consultation Requested: 12/29/2024 2 PM
Date/Time Consultation Performed: 12/29/2024 4 PM
Requesting Provider: Dr. Mike
Performing Provider: Dr. Lyon
Reason for Consultation: Hypernatremia
Medical History
-
Chief Complaint: Hyponatremia
History of Present Illness:
This is an 79-year-old female who resides at [facility] who has hypothyroidism on Synthroid therapy, hyperlipidemia on statin therapy, hypertension on a multidrug regimen. Her medical issues on the whole have been fairly stable. She
does have significant corticobasal syndrome of Parkinson's. There is also baseline dementia. Reportedly in the last 2 months she was being fed by staff [facility] [place] [facility]. However she has been having worsening lethargy and reported fever and
this was what prompted ER evaluation. Blood work here has shown a sodium level of 161.
Past Medical History
Dementia
Hypertension
Hyperlipidemia
Hypothyroidism
Bowel obstruction
Dry eye syndrome
Corticobasal syndrome form of Parkinson's
Hx falls
Hysterectomy
Social History
Tobacco: Former Smoker
Alcohol: None
Family History
Family History: Not Pertinent
Allergies / Home Medications
Allergy/AdvReac Type Severity Reaction Status Date / Time
.seasonal allergies Allergy Unknown Uncoded 12/29/24 12:29
�Medication �Instructions �Recorded �Confirmed �Type
levothyroxine 50 mcg tablet 50 mcg PO DAILY 10/05/21 12/29/24 History
simvastatin 20 mg tablet 20 mg PO HS 10/05/21 12/29/24 History
amlodipine 2.5 mg tablet 2.5 mg PO DAILY 11/13/24 12/29/24 History
clonazepam 0.5 mg tablet 0.5 mg PO BID 11/13/24 12/29/24 History
escitalopram oxalate 20 mg tablet 20 mg PO DAILY 11/13/24 12/29/24 History
melatonin 5 mg tablet 5 mg PO HS 11/13/24 12/29/24 History
metoprolol succinate 50 mg 50 mg PO DAILY 11/13/24 12/29/24 History
tablet,extended release 24 hr
cholecalciferol (vitamin D3) 25 25 mcg PO DAILY 12/17/24 12/29/24 History
mcg (1,000 unit) tablet
lorazepam 0.5 mg tablet 0.25 mg PO Q6HPRN PRN anxiety 12/17/24 12/29/24 History
tramadol 25 mg tablet 25 mg PO Q6HPRN PRN moderate pain 12/17/24 12/29/24 History
calcium 600 mg (as 1 tab PO BID 12/29/24 12/29/24 History
carbonate)-vitamin D3 10 mcg (400
unit) tablet (Calcium 600 + D(3))
sennosides 8.6 mg-docusate sodium 2 tab-cap PO HSPRN PRN constipation 12/29/24 12/29/24 History
50 mg tablet (Senna-S)
Review of Systems
-
Unable to obtain full review of systems at this time due to: Dementia
All other systems: Negative unless noted
Physical Exam
Vital Signs
Vital Signs
Temp Pulse Resp BP Pulse Ox
100 F 97 23 135/90 99
12/29/24 12:29 12/29/24 16:30 12/29/24 16:30 12/29/24 16:00 12/29/24 16:30
Lab Results
WBC 11.0 10^3/uL (4.8-10.8) H 12/29/24 12:54
RBC 4.68 10^6/uL (4.20-5.40) 12/29/24 12:54
Hgb 14.3 g/dL (12.0-16.0) 12/29/24 12:54
Hct 47.1 % (37.0-47.0) H 12/29/24 12:54
Plt Count 226 10^3/uL (130-400) 12/29/24 12:54
eGFR 57.66 12/29/24 12:54
Albumin 4.2 g/dl (3.5-5.0) 12/29/24 12:54
Laboratory Tests
12/17/24
08:36
Sodium 143
Physical Exam
Patient is unresponsive in no distress. Mood and affect, insight and judgment could not be assessed. Pupils are equal round and reactive to light, extraocular movements could not be assessed, sclera were anicteric. Hearing could not be
assessed,ears and nose are intact. Oropharynx was clear and dry. Neck was supple with trachea midline and no thyromegaly. Heart was regular rate and rhythm without rubs. Lower extremities without edema. Lungs were clear to auscultation bilaterally
and with normal excursion. Abdomen was soft, nontender, with normal active bowel sounds, and no hepatosplenomegaly. Skin was without rash and with normal turgor.
Data Reviewed
-
Radiology: Image Personally Visualized and interpreted (Chest x-ray 12/29/2024 by my reading shows possible right upper lung opacity)
Medical Tests (Nuc Med, Echo etc): Image Personally Visualized and interpreted (EKG 12/29/2024 by my reading shows normal sinus rhythm inferolateral T wave abnormality)
Labs: Labs Reviewed by me
Old Records: Reviewed
Assessment/Plan
-
Assessment
Parkinson's corticobasal syndrome
Dementia
Hyponatremia
Hypertension
Hypercalcemia
Lactic acidosis
Metabolic alkalosis
Plan
Check urine studies
Free water deficit approximately 3 L, plan to replace over 36 to 48 hours
D5W at 80 cc/h is reasonable
Serial BMP
Likely some starvation ketosis
[2024-12-29 17:48] LABS: Lactic Acid 1.4 mmol/L (0.7-2.0)
[2024-12-29 18:05] LABS: Blood Urea Nitrogen 68 mg/dl (7-17); Calcium 11.1 mg/dl (8.4-10.2); Carbon Dioxide 30 mmol/L (22-30); Chloride 123 mmol/L (98-107); Estimated Creatinine Clearance 32 ml/min; Glucose 124 mg/dl (70-99); Potassium 4.2 mmol/L (3.5-5.1); Sodium 160 mmol/L (135-145); eGFR > 60.00
[2024-12-29 19:28] LABS: Osmolality Urine 957 mOsm/kg (300-900)
[2024-12-29] MEDS: ATIVAN IV (19:34)
[2024-12-29 19:39] LABS: Urine Sodium 46 mmol/L (30-90)
[2024-12-29] MEDS: NSS (PRESERVATIVE FREE) IV (20:52)
[2024-12-29] MEDS: OSCAL 500 + D PO (20:53)
[2024-12-29] MEDS: HEPARIN 5000 UNITS SC (21:25)
[2024-12-29] MEDS: ATIVAN 0.25 MG IV (23:28)
[2024-12-29] MEDS: NSS (PRESERVATIVE FREE) 0.125 ML IV (23:28)
[2024-12-29 23:46] LABS: Blood Urea Nitrogen 63 mg/dl (7-17); Calcium 10.6 mg/dl (8.4-10.2); Carbon Dioxide 32 mmol/L (22-30); Chloride 120 mmol/L (98-107); Estimated Creatinine Clearance 32 ml/min; Glucose 163 mg/dl (70-99); Sodium 158 mmol/L (135-145); eGFR > 60.00
[2024-12-30 03:39] VITALS: BP 141/80
[2024-12-30] MEDS: D5W 1000 IV (03:50)
[2024-12-30 04:18] LABS: % Basophils 0.9 % (0-2); % Eosinophils 2.2 % (0-6); % Immature Granulocytes 0.3 % (0-0.5); % Monocytes 8.5 % (1.7-9.3); % Neutrophils 58.1 % (42.2-75.2); Absolute Basophils 0.1 10^3/uL (0-0.2); Absolute Eosinophils 0.2 10^3/uL (0-0.7); Absolute Lymphocytes 2.1 10^3/uL (1.2-3.4); Absolute Monocytes 0.6 10^3/uL (0.1-0.6); Absolute Neutrophils 4.1 10^3/uL (1.4-6.5); Hematocrit 42.8 % (37.0-47.0); Hemoglobin 13.2 g/dL (12.0-16.0); Mean Corp Hgb Conc. 30.8 g/dL (33.0-37.0); Mean Corpuscular Hgb 30.7 pg (27.0-31.0); Mean Corpuscular Volume 99.5 fL (81.0-99.0); Mean Platelet Volume 10.6 fL (7.4-10.4); Nucleated Red Blood Cells % 0 %; Platelet Count 189 10^3/uL (130-400); Red Cell Dist. Width 12.9 % (11.5-14.5)
[2024-12-30] MEDS: SYNTHROID PO ×2 (04:33→05:15)
[2024-12-30 04:43] LABS: ALT (SGPT) 68 U/L (0-35); AST (SGOT) 46 U/L (14-36); Albumin 3.9 g/dl (3.5-5.0); Alkaline Phosphatase 83 U/L (38-126); Blood Urea Nitrogen 57 mg/dl (7-17); Calcium 10.2 mg/dl (8.4-10.2); Carbon Dioxide 29 mmol/L (22-30); Chloride 120 mmol/L (98-107); Estimated Creatinine Clearance 36 ml/min; Glucose 136 mg/dl (70-99); Potassium 3.8 mmol/L (3.5-5.1); Sodium 155 mmol/L (135-145); Total Protein 6.6 g/dl (6.3-8.2); eGFR > 60.00
[2024-12-30 05:31] VITALS: BMI 15.4
[2024-12-30 07:30] VITALS: BP 125/78
[2024-12-30] MEDS: VITAMIN D3 (cholecalciferol) PO (07:42)
[2024-12-30] MEDS: OSCAL 500 + D PO ×2 (07:43→21:01)
[2024-12-30] MEDS: HEPARIN 5000 UNITS SC ×2 (08:21→21:39)
[2024-12-30] MEDS: ATIVAN 0.25 MG IV ×2 (08:21→17:38)
[2024-12-30] MEDS: NSS (PRESERVATIVE FREE) 0.125 ML IV ×2 (08:21→17:38)
[2024-12-30 09:15] LABS: Blood Urea Nitrogen 51 mg/dl (7-17); Calcium 9.8 mg/dl (8.4-10.2); Carbon Dioxide 28 mmol/L (22-30); Chloride 121 mmol/L (98-107); Estimated Creatinine Clearance 36 ml/min; Glucose 114 mg/dl (70-99); Potassium 3.5 mmol/L (3.5-5.1); Sodium 153 mmol/L (135-145); eGFR > 60.00
--- NOTE | 2024-12-30 09:16 | PTOTSP ---
Speech Therapy Evaluation:
Pt with acute on chronic risk factors for dysphagia (hx of dementia, hx of Corticobasal Syndrome form of Parkinson's, lethargy). Pt with poor alertness maintained during evaluation. Observed to fall asleep with ice chip in oral cavity, requiring WAITER/WAITRESS THIRD CLASS
to manually remove ice chip. Further PO trials d/c d/t safety concerns. Pt at increased risk of aspiration given current mentation, non-ambulatory status, and dependence for feeding/oral care. Currently, WBC WNL. CXR with new hazy opacity projecting
over lateral RUL, suspicious for PNA.
Impression: Pt with acute on chronic risk factors of dysphagia; does not currently have mentation supportive of PO intake.
Recommend:
1. Continue NPO
2. Medications non-oral
3. Oral care via suction toothbrush 3x/daily
4. WAITER/WAITRESS THIRD CLASS to follow to determine candidacy for ARHP and/or diet initiation
--- NOTE | 2024-12-30 10:30 | W.PN.NEPH.PH ---
Today's Communication / Plan
-
IVF
Assessment/Plan
-
Assessment
Parkinson's corticobasal syndrome
Dementia
Hyponatremia
Hypertension
Hypercalcemia
Lactic acidosis
Metabolic alkalosis
Plan
urine studies suggest she was not getting enough free water
continue D5W at 80 cc/hr
follow BMP
eventual swallow study
-
-
Date of Service: December 30, 2024
CC / HPI / ROS
-
Chief Complaint:
hypernatremia
History of Present Illness:
Na down to 153
BP stable
no po intake
nonconversant
Review of Systems:
no fever
incontinent
Labs
-
Labs:
WBC 7.0 10^3/uL (4.8-10.8) 12/30/24 04:07
RBC 4.30 10^6/uL (4.20-5.40) 12/30/24 04:07
Hgb 13.2 g/dL (12.0-16.0) 12/30/24 04:07
Hct 42.8 % (37.0-47.0) 12/30/24 04:07
Plt Count 189 10^3/uL (130-400) 12/30/24 04:07
Sodium Cancelled 12/30/24 16:00
Potassium Cancelled 12/30/24 16:00
Chloride Cancelled 12/30/24 16:00
Carbon Dioxide Cancelled 12/30/24 16:00
BUN Cancelled 12/30/24 16:00
Creatinine Cancelled 12/30/24 16:00
eGFR Cancelled 12/30/24 16:00
Glucose Cancelled 12/30/24 16:00
Calcium Cancelled 12/30/24 16:00
Albumin 3.9 g/dl (3.5-5.0) 12/30/24 04:07
Physical Exam
-
Vital Signs:
Vital Signs
Temp Pulse Resp BP Pulse Ox
97.6 F 74 16 125/78 95
12/30/24 07:30 12/30/24 07:30 12/30/24 07:30 12/30/24 07:30 12/30/24 07:30
Cardiovascular:: Regular rate and rhythm
Respiratory:: Bilateral: CTA
Lung Excursion:: Normal
Abdomen:: Nontender and Soft
Bowel Sounds:: Normal
Extremity Edema:: None: Bilateral:
[2024-12-30 10:52] LABS: Troponin I 0.039 ng/ml
[2024-12-30 11:00] VITALS: BP 136/76
[2024-12-30] MEDS: ZOSYN 50 IV ×3 (11:13→21:56)
--- NOTE | 2024-12-30 13:57 | CM ---
NENA spoke with LAVON Kent at [facility].
Prior to admission pt is mostly bed bound, rarely will take steps using RW with assistance, 3-4 steps at most. Staff feeds pt. Total care for adl's. Takes pills crushed. Confused at baseline.
NENA spoke with spouse Freda [phone]. Spouse reports pt will return to [facility] at ar.
ME dispo anticipate pt will return to [place] at [facility] when stable.
--- NOTE | 2024-12-30 14:19 | W.PN.HOSP.TC ---
Today's Communication/Plan
-
Monitor vital signs see plan
Continue with antibiotics
Speech following, n.p.o. for now
Monitor sodium
Continue with D5 water
Discussed with the over the phone
Assessment / Plan
Assessment / Plan
General: Lethargic
HEENT: NormoCephalic, Anicteric, PERRLA and Other (Dry oral mucosa)
Respiratory: Clear; No Wheezes, Rales, Rhonchi or Crackles
Cardiac: S1/S2 and Regular Rhythm; No Murmur, Rub, Gallop or Peripheral Edema
GI: Soft, Non Tender, Non Distended, Normal Bowel Sounds
Musculoskeletal:No Edema
Neuro: Lethargic
Psych: Calm and Other
Change in mental status due to metabolic encephalopathy secondary to hyponatremia and PNA
#Severe Hyponatremia Due to Dehydration
-Neurochecks every 4 hours
cw d5w
follow bmp q4 hour
PT/OT
Na now 153; monitor
nephrology following
CXR with PNA; speech following. npo for now
PNA
CXR noted
unclear if aspiration; speech following
start Zosyn
bcx drawn on admission pending
#Recent UTI
12/17/24 started and then completed cefdinir
-UA negative
#Corticobasal syndrome form of Parkinson's Dx 2022 [facility]
#Hx Falls
-Transfers via wheelchair
#Dementia with mood disorders on chronic BENZO's
Parkinson's corticobasal syndrome
#Depression
-Stopped talking in Oct per
- screams occasionally
-Cont Lorazepam 0.25mg q8h IV to prevent BENZO withdrawal
-When able to swallow may resume lorazepam 0.25 mg every 8 hours as needed, clonazepam 0.5 mg p.o. twice daily, Lexapro 20 mg daily
-Is on pureed diet ,thickened liquids per , crushed meds with apple sauce or pudding
speech following; rec NPO
#Hypertension
-Continue metoprolol succinate 50 mg daily, amlodipine 2.5 mg daily with hold parameters if able to swallow
IV as needed hydralazine SBP>165
#Hyperlipidemia
-Continue simvastatin 20 mg at bedtime
#Hypothyroidism
TSH wnl
-Continue levothyroxine 50 mcg p.o. daily
#Bowel obstruction
Continue senna 2 capsules at bedtime as needed constipation
# Dry eye syndrome
-Artificial tears
#Hx chronic pain
Hold tramadol 25 mg p.o. every 6 hours as needed moderate pain due to sedation
May give Tylenol as needed
#Insomnia
Hold melatonin due to sedation
DNR per NAVID
I spent a total of 52 minutes with the patient or on the floor. More than 50% of this time involved counseling and coordination of care.
Anticipated Discharge: > 48 hours
Subjective/Interval History
-
Date of Service: December 30, 2024
lethargic
Objective Data
-
Labs:
Laboratory Results
12/30/24 12/30/24 12/30/24
02:00 03:18 04:07
WBC 7.0
Hgb 13.2
Hct 42.8
Plt Count 189
Sodium Cancelled Cancelled 155 H
Potassium Cancelled Cancelled 3.8
Chloride Cancelled Cancelled 120 H
Carbon Dioxide Cancelled Cancelled 29
BUN Cancelled Cancelled 57 H
Creatinine Cancelled Cancelled 0.8
Glucose Cancelled Cancelled 136 H
Calcium Cancelled Cancelled 10.2
Total Bilirubin 1.0
AST 46 H
ALT 68 H
Alkaline Phosphatase 83
12/30/24 12/30/24 12/30/24
08:34 12:00 16:00
WBC
Hgb
Hct
Plt Count
Sodium 153 H Cancelled Cancelled
Potassium 3.5 Cancelled Cancelled
Chloride 121 H Cancelled Cancelled
Carbon Dioxide 28 Cancelled Cancelled
BUN 51 H Cancelled Cancelled
Creatinine 0.8 Cancelled Cancelled
Glucose 114 H Cancelled Cancelled
Calcium 9.8 Cancelled Cancelled
Total Bilirubin
AST
ALT
Alkaline Phosphatase
Vital Signs:
Vital Signs
Temp Pulse Resp BP Pulse Ox
97.7 F 100 22 136/76 94
12/30/24 11:00 12/30/24 11:00 12/30/24 11:00 12/30/24 11:00 12/30/24 12:10
I&O
12/29/24 12/30/24 12/31/24
06:59 06:59 06:59
Intake Total 800 / 800
Balance 800 / 800
[2024-12-30 15:55] VITALS: BMI 15.4
[2024-12-30 16:00] VITALS: BP 122/78
[2024-12-30 20:01] VITALS: BP 121/72
[2024-12-30 20:04] LABS: Blood Urea Nitrogen 42 mg/dl (7-17); Calcium 9.3 mg/dl (8.4-10.2); Carbon Dioxide 28 mmol/L (22-30); Chloride 112 mmol/L (98-107); Estimated Creatinine Clearance 32 ml/min; Glucose 229 mg/dl (70-99); Potassium 3.3 mmol/L (3.5-5.1); Sodium 149 mmol/L (135-145); eGFR > 60.00
[2024-12-30 23:00] VITALS: BP 131/75
[2024-12-31] MEDS: ATIVAN 0.25 MG IV ×3 (00:15→16:27)
[2024-12-31] MEDS: NSS (PRESERVATIVE FREE) 0.125 ML IV ×3 (00:16→16:27)
[2024-12-31] MEDS: ZOSYN 50 IV ×4 (03:35→21:46)
[2024-12-31 04:03] VITALS: BP 140/74
[2024-12-31] MEDS: SYNTHROID PO (04:05)
[2024-12-31 04:49] LABS: % Basophils 1.2 % (0-2); % Eosinophils 2.5 % (0-6); % Immature Granulocytes 0.3 % (0-0.5); % Lymphocytes 28.5 % (20.5-51.1); % Neutrophils 59.5 % (42.2-75.2); Absolute Basophils 0.1 10^3/uL (0-0.2); Absolute Eosinophils 0.2 10^3/uL (0-0.7); Absolute Lymphocytes 2.1 10^3/uL (1.2-3.4); Absolute Monocytes 0.6 10^3/uL (0.1-0.6); Absolute Neutrophils 4.3 10^3/uL (1.4-6.5); Hemoglobin 12.4 g/dL (12.0-16.0); Mean Corp Hgb Conc. 32.6 g/dL (33.0-37.0); Mean Corpuscular Hgb 31.2 pg (27.0-31.0); Mean Corpuscular Volume 95.5 fL (81.0-99.0); Mean Platelet Volume 11.1 fL (7.4-10.4); Nucleated Red Blood Cells % 0 %; Platelet Count 159 10^3/uL (130-400); Red Blood Cell Count 3.98 10^6/uL (4.20-5.40); Red Cell Dist. Width 12.6 % (11.5-14.5); White Blood Cell Count 7.2 10^3/uL (4.8-10.8)
[2024-12-31 05:16] LABS: ALT (SGPT) 47 U/L (0-35); AST (SGOT) 33 U/L (14-36); Albumin 3.7 g/dl (3.5-5.0); Alkaline Phosphatase 81 U/L (38-126); Blood Urea Nitrogen 40 mg/dl (7-17); Calcium 9.2 mg/dl (8.4-10.2); Carbon Dioxide 28 mmol/L (22-30); Chloride 115 mmol/L (98-107); Estimated Creatinine Clearance 32 ml/min; Glucose 93 mg/dl (70-99); Potassium 3.6 mmol/L (3.5-5.1); Sodium 151 mmol/L (135-145); Total Bilirubin 1.2 mg/dl (0.2-1.3); Total Protein 6.1 g/dl (6.3-8.2); eGFR > 60.00
[2024-12-31 06:00] VITALS: BMI 16.2
[2024-12-31 07:30] VITALS: BP 107/66
[2024-12-31] MEDS: OSCAL 500 + D PO ×2 (07:43→20:43)
[2024-12-31] MEDS: VITAMIN D3 (cholecalciferol) PO (07:43)
[2024-12-31] MEDS: HEPARIN 5000 UNITS SC ×2 (07:59→21:46)
[2024-12-31] MEDS: D5W 1000 IV ×2 (08:03→19:05)
--- NOTE | 2024-12-31 09:35 | W.PN.NEPH.PH ---
Today's Communication / Plan
-
IVF
Assessment/Plan
-
Assessment
Parkinson's corticobasal syndrome
Dementia
Hyponatremia
Hypertension
Hypercalcemia
Lactic acidosis
Metabolic alkalosis
Plan
urine studies suggest she was not getting enough free water
continue D5W increase to 100ml/hr
follow BMP
-
-
Date of Service: December 31, 2024
CC / HPI / ROS
-
Chief Complaint:
hypernatremia
History of Present Illness:
Na down to 151
BP stable
no po intake
nonconversant
Review of Systems:
no fever
incontinent
Labs
-
Labs:
WBC 7.2 10^3/uL (4.8-10.8) 12/31/24 04:00
RBC 3.98 10^6/uL (4.20-5.40) L 12/31/24 04:00
Hgb 12.4 g/dL (12.0-16.0) 12/31/24 04:00
Hct 38.0 % (37.0-47.0) 12/31/24 04:00
Plt Count 159 10^3/uL (130-400) 12/31/24 04:00
eGFR Cancelled 12/31/24 08:00
Albumin 3.7 g/dl (3.5-5.0) 12/31/24 04:00
Physical Exam
-
Vital Signs:
Vital Signs
Temp Pulse Resp BP Pulse Ox
97.9 F 67 16 140/74 96
12/31/24 04:03 12/31/24 04:03 12/31/24 04:03 12/31/24 04:03 12/31/24 08:05
Cardiovascular:: Regular rate and rhythm
Respiratory:: Bilateral: Coarse
Lung Excursion:: Normal
Abdomen:: Nontender and Soft
Bowel Sounds:: Normal
Extremity Edema:: None: Bilateral:
[2024-12-31 11:00] VITALS: BP 107/60
--- NOTE | 2024-12-31 11:20 | W.PN.HOSP.TC ---
Today's Communication/Plan
-
Monitor vital signs see plan
Continue with antibiotics
Monitor mental status
Monitor sodium
Continue with D5 water
Assessment / Plan
Assessment / Plan
General: Lethargic
HEENT: NormoCephalic, Anicteric, PERRLA and Other (Dry oral mucosa)
Respiratory: Clear; No Wheezes, Rales, Rhonchi or Crackles
Cardiac: S1/S2 and Regular Rhythm; No Murmur, Rub, Gallop or Peripheral Edema
GI: Soft, Non Tender, Non Distended, Normal Bowel Sounds
Musculoskeletal:No Edema
Neuro: Lethargic
Psych: Calm and Other
Change in mental status due to metabolic encephalopathy secondary to hyponatremia and PNA
#Severe Hyponatremia Due to Dehydration
-Neurochecks every 4 hours
cw d5w; inc to 100cc
follow bmp
PT/OT
Na now 151; monitor
nephrology following
CXR with PNA; speech following. npo for now
PNA
CXR noted
unclear if aspiration; speech following
started Zosyn
bcx drawn on admission pending
#Recent UTI
12/17/24 started and then completed cefdinir
-UA negative
#Corticobasal syndrome form of Parkinson's Dx 2022 [facility]
#Hx Falls
-Transfers via wheelchair
#Dementia with mood disorders on chronic BENZO's
Parkinson's corticobasal syndrome
#Depression
-Stopped talking in Oct per
- screams occasionally
-Cont Lorazepam 0.25mg q8h IV to prevent BENZO withdrawal
-When able to swallow may resume lorazepam 0.25 mg every 8 hours as needed, clonazepam 0.5 mg p.o. twice daily, Lexapro 20 mg daily
-Is on pureed diet ,thickened liquids per , crushed meds with apple sauce or pudding
speech following; rec NPO
#Hypertension
-Continue metoprolol succinate 50 mg daily, amlodipine 2.5 mg daily with hold parameters if able to swallow
IV as needed hydralazine SBP>165
#Hyperlipidemia
-Continue simvastatin 20 mg at bedtime
#Hypothyroidism
TSH wnl
-Continue levothyroxine 50 mcg p.o. daily
#Bowel obstruction
Continue senna 2 capsules at bedtime as needed constipation
# Dry eye syndrome
-Artificial tears
#Hx chronic pain
Hold tramadol 25 mg p.o. every 6 hours as needed moderate pain due to sedation
May give Tylenol as needed
#Insomnia
Hold melatonin due to sedation
DNR per NAVID
Discussed with spouse that if patient does not improve then likely palliative/hospice route will be appropriate. He understands that patient prognosis is worsening given Parkinson's dementia.
I spent a total of 51 minutes with the patient or on the floor. More than 50% of this time involved counseling and coordination of care.
Anticipated Discharge: > 48 hours
Subjective/Interval History
-
Date of Service: December 31, 2024
doesnt respond
Objective Data
-
Labs:
Laboratory Results
12/31/24 12/31/24 12/31/24
00:00 04:00 04:00
WBC 7.2
Hgb 12.4
Hct 38.0
Plt Count 159
Sodium Cancelled 151 H Cancelled
Potassium Cancelled 3.6
Chloride Cancelled
Carbon Dioxide Cancelled
BUN Cancelled
Creatinine Cancelled
Glucose Cancelled
Calcium Cancelled
Total Bilirubin
AST
ALT
Alkaline Phosphatase
12/31/24 12/31/24 12/31/24
04:00 04:00 04:00
WBC
Hgb
Hct
Plt Count
Sodium
Potassium Cancelled
Chloride 115 H Cancelled
Carbon Dioxide 28 Cancelled
BUN 40 H
Creatinine
Glucose
Calcium
Total Bilirubin
AST
ALT
Alkaline Phosphatase
12/31/24 12/31/24 12/31/24
04:00 04:00 04:00
WBC
Hgb
Hct
Plt Count
Sodium
Potassium
Chloride
Carbon Dioxide
BUN Cancelled
Creatinine 0.9 Cancelled
Glucose 93 Cancelled
Calcium 9.2
Total Bilirubin
AST
ALT
Alkaline Phosphatase
12/31/24 12/31/24 12/31/24
04:00 08:00 12:00
WBC
Hgb
Hct
Plt Count
Sodium Cancelled Pending
Potassium Cancelled Pending
Chloride Cancelled Pending
Carbon Dioxide Cancelled Pending
BUN Cancelled Pending
Creatinine Cancelled Pending
Glucose Cancelled Pending
Calcium Cancelled Cancelled Pending
Total Bilirubin 1.2
AST 33
ALT 47 H
Alkaline Phosphatase 81
Vital Signs:
Vital Signs
Temp Pulse Resp BP Pulse Ox
97.9 F 67 16 140/74 96
12/31/24 04:03 12/31/24 04:03 12/31/24 04:03 12/31/24 04:03 12/31/24 08:05
I&O
12/30/24 12/31/24 01/01/25
06:59 06:59 06:59
Intake Total 3011 / 3012
Balance 3011 / 3011
[2024-12-31 13:35] LABS: Blood Urea Nitrogen 34 mg/dl (7-17); Calcium 8.7 mg/dl (8.4-10.2); Carbon Dioxide 24 mmol/L (22-30); Chloride 114 mmol/L (98-107); Estimated Creatinine Clearance 38 ml/min; Glucose 116 mg/dl (70-99); Potassium 3.6 mmol/L (3.5-5.1); Sodium 146 mmol/L (135-145); eGFR > 60.00
--- NOTE | 2024-12-31 13:52 | PTOTSP ---
Speech Pathology Follow Up
Not a candidate for PO or ARHP at this time due to increased lethargy and acute on chronic risk factors for dysphagia (hx of dementia, hx of Corticobasal Syndrome form of Parkinson's, lethargy). Required extraction of ice chip out of oral cavity 2/2
safety concerns (i.e. no effort to manipulate bolus or initiate swallow). Aspiration risk remains increased 2/2 lethargy, multiple comorbidities, and dependence for feeding/oral care. Communicated findings with LAVON Hubbard.
Maintain recommendations:
1. Continue NPO
2. Medications non-oral
3. Oral care via suction toothbrush 3x/daily
4. MANAGER LAW to follow to determine candidacy for ARHP and/or diet initiation
[2024-12-31 15:00] VITALS: BP 111/74
[2024-12-31 20:26] VITALS: BP 132/72
[2024-12-31 22:17] LABS: Sodium 141 mmol/L (135-145)
[2024-12-31 23:56] VITALS: BP 123/63
[2025-01-01] MEDS: ATIVAN 0.25 MG IV ×3 (00:20→21:23)
[2025-01-01] MEDS: NSS (PRESERVATIVE FREE) 0.125 ML IV ×3 (00:20→21:23)
--- NOTE | 2025-01-01 01:03 | PTCARENOTE ---
Patient lethargic. Patient frequently moaning. Unable to assess orientation due to baseline cognitive status and being nonverbal--see neuro flowsheet. Mouth care completed. Patient with black fuzzy tongue. Q 2 hour turns. Sacral wound care
completed. Incontinence care completed. NPO status maintained. Bed in lowest position. Call ho and personal belongings within reach.
[2025-01-01 03:22] VITALS: BP 142/61
[2025-01-01] MEDS: D5W 1000 IV (03:58)
[2025-01-01] MEDS: ZOSYN 50 IV ×4 (03:58→22:23)
[2025-01-01] MEDS: SYNTHROID PO ×2 (03:59→23:59)
[2025-01-01 06:34] VITALS: BMI 16.2
[2025-01-01 07:45] VITALS: BP 144/71
[2025-01-01] MEDS: OSCAL 500 + D PO ×2 (08:28→20:59)
[2025-01-01] MEDS: VITAMIN D3 (cholecalciferol) PO (08:28)
[2025-01-01] MEDS: HEPARIN 5000 UNITS SC ×2 (08:33→21:22)
[2025-01-01 09:24] LABS: % Basophils 0.7 % (0-2); % Immature Granulocytes 0.4 % (0-0.5); % Lymphocytes 28.6 % (20.5-51.1); % Monocytes 8.1 % (1.7-9.3); % Neutrophils 58.2 % (42.2-75.2); Absolute Eosinophils 0.2 10^3/uL (0-0.7); Absolute Lymphocytes 1.6 10^3/uL (1.2-3.4); Absolute Monocytes 0.4 10^3/uL (0.1-0.6); Absolute Neutrophils 3.2 10^3/uL (1.4-6.5); Hematocrit 32.5 % (37.0-47.0); Hemoglobin 10.6 g/dL (12.0-16.0); Mean Corp Hgb Conc. 32.6 g/dL (33.0-37.0); Mean Corpuscular Hgb 30.4 pg (27.0-31.0); Mean Corpuscular Volume 93.1 fL (81.0-99.0); Mean Platelet Volume 10.8 fL (7.4-10.4); Nucleated Red Blood Cells % 0 %; Platelet Count 144 10^3/uL (130-400); Red Blood Cell Count 3.49 10^6/uL (4.20-5.40); Red Cell Dist. Width 12.3 % (11.5-14.5); White Blood Cell Count 5.5 10^3/uL (4.8-10.8)
[2025-01-01 09:50] LABS: ALT (SGPT) 31 U/L (0-35); AST (SGOT) 24 U/L (14-36); Albumin 2.9 g/dl (3.5-5.0); Alkaline Phosphatase 65 U/L (38-126); Blood Urea Nitrogen 17 mg/dl (7-17); Calcium 8.2 mg/dl (8.4-10.2); Carbon Dioxide 24 mmol/L (22-30); Chloride 110 mmol/L (98-107); Estimated Creatinine Clearance 43 ml/min; Glucose 104 mg/dl (70-99); Potassium 3.3 mmol/L (3.5-5.1); Sodium 138 mmol/L (135-145); Total Bilirubin 0.9 mg/dl (0.2-1.3); Total Protein 5.2 g/dl (6.3-8.2); eGFR > 60.00
--- NOTE | 2025-01-01 10:30 | PTOTSP ---
Speech Language Pathology
Pt seen for dysphagia tx. Sleeping soundly upon arrival. Eyes remained closed for duration of session. Set up suction in room and completed oral care with use of suction toothbrush. Pt moving oral musculature in response, biting down on
toothbrush at times. Actively accepted P.O. trials. Trialed ice chip, which pt actively chewed. Swallow initiated with prolonged coughing noted. Also seen with thin liquids via pipetted straw and puree with coughing following all. Question
aspiration.
Pt is more alert this date. Hopefully pt will continue to become more alert, which should improve safety of P.O. intake. Not yet appropriate for P.O. diet.
Recommend:
(1) Continue NPO
(2) Oral care 4x/day with suctioning as needed
(3) Non-oral meds
(4) Hold on ARHP at this time until more consistently alert
(5) SHIRT PRESSER to continue to follow
[2025-01-01 11:35] VITALS: BP 142/67
--- NOTE | 2025-01-01 12:33 | W.PN.HOSP.TC ---
Addendum entered and electronically signed by Eric Brown MD 01/01/25 16:47:
should read as 'Change in mental status due to metabolic encephalopathy secondary to hypernatremia and PNA'
Original Note:
Today's Communication/Plan
-
monitor vitals
see plan
Spouse updated over the phone
cw abc
dc further IV fluids
replete K
speech to see
Assessment / Plan
Assessment / Plan
General: Lethargic
HEENT: NormoCephalic, Anicteric, PERRLA and Other (Dry oral mucosa)
Respiratory: Clear; No Wheezes, Rales, Rhonchi or Crackles
Cardiac: S1/S2 and Regular Rhythm; No Murmur, Rub, Gallop
GI: Soft, Non Tender, Non Distended, Normal Bowel Sounds
Musculoskeletal:No Edema
Neuro: Lethargic
Psych: Calm and Other
Change in mental status due to metabolic encephalopathy secondary to hyponatremia and PNA; Per facility patient is mostly bedbound, barely will take steps with rolling walker with assistance. Staff has to feed her. Totally dependent for ADL S
Also severely deconditioned;
#Severe Hyponatremia Due to Dehydration
-Neurochecks every 4 hours
dc further fluids
follow bmp
PT/OT
monitor Na
nephrology following
CXR with PNA; speech following. npo for now
make ativan prn and wants to see if patient responds
PNA
CXR noted
unclear if aspiration; speech following
started Zosyn
bcx drawn on admission pending
#Recent UTI
12/17/24 started and then completed cefdinir
-UA negative
#Corticobasal syndrome form of Parkinson's Dx 2022 [facility]
#Hx Falls
-Transfers via wheelchair
#Dementia with mood disorders on chronic BENZO's
Parkinson's corticobasal syndrome
#Depression
-Stopped talking in [place] per
- screams occasionally
-Make lorazepam as needed
-When able to swallow may resume lorazepam 0.25 mg every 8 hours as needed, clonazepam 0.5 mg p.o. twice daily, Lexapro 20 mg daily
-Is on pureed diet ,thickened liquids per , crushed meds with apple sauce or pudding
speech following; rec NPO
#Hypertension
-Continue metoprolol succinate 50 mg daily, amlodipine 2.5 mg daily with hold parameters if able to swallow
IV as needed hydralazine SBP>165
#Hyperlipidemia
-Continue simvastatin 20 mg at bedtime
#Hypothyroidism
TSH wnl
-Continue levothyroxine 50 mcg p.o. daily
#Bowel obstruction
Continue senna 2 capsules at bedtime as needed constipation
# Dry eye syndrome
-Artificial tears
#Hx chronic pain
Hold tramadol 25 mg p.o. every 6 hours as needed moderate pain due to sedation
May give Tylenol as needed
#Insomnia
Hold melatonin due to sedation
DNR per NAVID
Discussed with spouse that if patient does not improve then likely palliative/hospice route will be appropriate. He understands that patient prognosis is worsening given Parkinson's dementia.
I spent a total of 51 minutes with the patient or on the floor. More than 50% of this time involved counseling and coordination of care.
Anticipated Discharge: > 48 hours
Subjective/Interval History
-
Date of Service: January 01, 2025
lethargic
Objective Data
-
Labs:
Laboratory Results
01/01/25 01/01/25
05:00 08:26
WBC 5.5
Hgb 10.6 L
Hct 32.5 L
Plt Count 144
Sodium Cancelled 138
Potassium 3.3 L
Chloride 110 H
Carbon Dioxide 24
BUN 17
Creatinine 0.7
Glucose 104 H
Calcium 8.2 L
Total Bilirubin 0.9
AST 24
ALT 31
Alkaline Phosphatase 65
Vital Signs:
Vital Signs
Temp Pulse Resp BP Pulse Ox
97 F 80 18 142/67 94
01/01/25 11:35 01/01/25 11:35 01/01/25 11:35 01/01/25 11:35 01/01/25 11:35
I&O
12/31/24 01/01/25 01/02/25
06:59 06:59 06:59
Intake Total 3011 / 3011
Balance 3011 / 3011
--- NOTE | 2025-01-01 12:58 | CM ---
CM reviewed chart, spoke with Duong, Director of [facility], confirmed ability to accept patient back when medically stable. Patient seen asleep bedside, , Freda, present. CM will continue to follow for all discharge planning needs.
Plan; return to [facility] when medically stable.
[2025-01-01] MEDS: KCL 270 MEQ IV (13:00)
--- NOTE | 2025-01-01 13:46 | W.PN.NEPH.PH ---
Today's Communication / Plan
-
Discontinue D5W as sodium is 138
Assessment/Plan
-
Assessment
Parkinson's corticobasal syndrome
Dementia
Hyponatremia
Hypertension
Hypercalcemia
Lactic acidosis
Metabolic alkalosis
Plan
urine studies suggest she was not getting enough free water
Sodium 138 discontinue D5W
follow BMP
-
-
Date of Service: January 01, 2025
CC / HPI / ROS
-
Chief Complaint:
hypernatremia
History of Present Illness:
Na down and within normal limit
BP stable
no po intake
Opens eyes today
Review of Systems:
no fever
incontinent
Labs
-
Labs:
WBC 5.5 10^3/uL (4.8-10.8) 01/01/25 08:26
RBC 3.49 10^6/uL (4.20-5.40) L 01/01/25 08:26
Hgb 10.6 g/dL (12.0-16.0) L 01/01/25 08:26
Hct 32.5 % (37.0-47.0) L 01/01/25 08:26
Plt Count 144 10^3/uL (130-400) 01/01/25 08:26
Sodium 138 mmol/L (135-145) 01/01/25 08:26
Potassium 3.3 mmol/L (3.5-5.1) L 01/01/25 08:26
Chloride 110 mmol/L (98-107) H 01/01/25 08:26
Carbon Dioxide 24 mmol/L (22-30) 01/01/25 08:26
BUN 17 mg/dl (7-17) 01/01/25 08:26
Creatinine 0.7 mg/dL (0.6-1.0) 01/01/25 08:26
eGFR > 60.00 01/01/25 08:26
Glucose 104 mg/dl (70-99) H 01/01/25 08:26
Calcium 8.2 mg/dl (8.4-10.2) L 01/01/25 08:26
Albumin 2.9 g/dl (3.5-5.0) L 01/01/25 08:26
Physical Exam
-
Vital Signs:
Vital Signs
Temp Pulse Resp BP Pulse Ox
97 F 80 18 142/67 94
01/01/25 11:35 01/01/25 11:35 01/01/25 11:35 01/01/25 11:35 01/01/25 11:35
Cardiovascular:: Regular rate and rhythm
Respiratory:: Bilateral: Coarse
Lung Excursion:: Normal
Abdomen:: Nontender and Soft
Bowel Sounds:: Normal
Extremity Edema:: None: Bilateral:
--- NOTE | 2025-01-01 14:38 | WOUNDNOTE ---
WON RN note: Patient admitted with Acute hypernatremia.
See H&P for complete history. Lives at [facility].
PMH: H&P review past medical history of dementia, hypertension, hyperlipidemia, hypothyroidism, bowel obstruction, dry eye syndrome, corticobasal syndrome form of Parkinson's.
Wound Location and type/assessment: Patient admitted with: small stage 2 sacral ulcer, base pink and slightly open, scant drainage. Periwound with dry patches on either side and rim of dark maroon, possible evolving DTI. Heels are red and
blanchable. R lateral ankle and L hip with scabbed abrasions. L arm is contracted and limited in mobility. Patient incontinent of urine, soaked bed. With assist of nurse Steele, skin care given and linens changed.
Appetite: NPO patient only weighs 86 pounds.
Pressure redistribution devices in place: On [facility] care air bed. Repositioned patient onto L semi side lying position.
Plan: Foams applied to sacrum and heels. Pillow padded btw legs.
Will confirm orders with hospitalist and updated nurse.
Updated care plan and will follow as needed.
Note to case management of equipment requested for discharge: air mattress if not hospice.
[2025-01-01 15:35] VITALS: BP 128/90
--- NOTE | 2025-01-01 16:42 | PN.CDI ---
CDI
- -
CDI:
Physician Documentation Request
Admit Date: 12/29/24 15:57
Dear Doctor Kevin,
Please review the following and provide your response in the progress notes.
Clinical Indicators:
Pt admitted with Severe Hypernatremia/PNA /Metabolic encephalopathy
BMI 16.2
Nutrition note 01/01, ' Subcutaneous loss of over rib cage Severity Moderate, orbital Severity Moderate , Muscle loss over calf severity moderate , quads seventy Moderate ,Clavicle Moderate, Temporal Severity Severe..' CBW: 91 lbs 6.4 oz BMI: 16.2
underweight (01/01); 86 lbs 11.184 oz BMI 15.4 underweight range. Pts weight previous hospital visits listed as 99 lbs 12/09 and 120 lbs 03/14/24 reflective of a 34lb (29%) weight loss in < [address] During visit [address] able to visualize temporal wasting,
orbital area sunken in, protrusion of clavicle, apparent ribs, quad and calf muscle wasting With observed muscle and fat wasting as well as > 20% weight loss in 1 year pt meets AND/ASPEN criteria for severe protein calorie malnutrition of chronic
illness. Request progression of diet as tolerated.... '
Based on the above information and your assessment, which of the following most accurately represents the patient's nutritional status?
Severe Protein Calorie Malnutrition
Moderate protein calorie malnutrition
Other ( please specify)
[place] Criteria ([facility] Hospitalist 2017)
2 or more criteria must be present for either
non severe or severe malnutrition
Note that the criteria differs related to the
presence of an acute or chronic illness
Acute Illness Chronic Illness
Energy Intake Non Severe: <75% for >7 days Non Severe: <75% for >1 month
Severe: <50% for >5 days Severe: <75% for >1 month
Weight Loss Non Severe: 1-2% over 1 week Non Severe: 5% over 1 month
5% over 1 month 7.5% over 3 months
7.5% over 3 months 10% over 6 months
1 year N/A 20% over 1 year
Severe: >2% over 1 week Severe: >5% over 1 month
>5% over 1 month >7.5% over 3 months
>7.5% over 3 months >10% over 6 months
1 year N/A >20% over 1 year
Body Fat Non Severe: Mild Decrease Non Severe: Mild Loss
Severe: Moderate Decrease Severe: Severe Loss
Muscle Mass Non Severe: Mild Decrease Non Severe: Mild Loss
Severe: Moderate Decrease Severe: Severe Loss
Fluid Accumulation Non Severe: Mild Accumulation Non Severe: Mild Accumulation
Severe: Moderate to severe Severe: Moderate to severe
accumulation accumulation
Reduced Senior Financial Reporting Accountant Strength Non Severe: N/A Non Severe: N/A
Severe: Measurably reduced Severe: Measurably reduced
Use of terms such as suspected, likely, concern for, or probable (associated with a specific diagnosis that is being evaluated, monitored, or treated as if it exists) are acceptable and can be coded in the inpatient setting, when documented at the
time of discharge.
Thank you,
Kelly Kirk RN
CDI Specialist
[place] [facility]
Please use your independent medical judgment in providing your response.
--- NOTE | 2025-01-01 16:49 | PN.CDI ---
CDI
- -
CDI:
Physician Documentation Request
Admit Date: 12/29/24 15:57
Dear Doctor Kevin,
Please review the following and provide your response in the progress notes.
Clinical Indicators:
Pt admitted with Severe Hypernatremia/PNA /Metabolic encephalopathy /Dementia
Documented per H&P,' She is fed by staff for the Past 2 months. '
Case management note 12/30,' Prior to admission pt is mostly bed bound... Staff feeds pt. Total care for adl's. Takes pills crushed. Confused at baseline....'
Documented per Rehab panel 12/29,'Previous functional ability dependent , prior to admission patient non ambulatory..'
Please provide the patient current functional ability/status:
Functional Quadriplegia -complete immobility due to severe physical disability or frailty.
Weakness only
Other ( please specify)
Use of terms such as suspected, likely, concern for, or probable (associated with a specific diagnosis that is being evaluated, monitored, or treated as if it exists) are acceptable and can be coded in the inpatient setting, when documented at the
time of discharge.
Thank you,
Kelly Kirk RN
CDI Specialist
[place] [facility]
Please use your independent medical judgment in providing your response.
--- NOTE | 2025-01-01 16:57 | PN.CDI ---
CDI
- -
CDI:
Physician Documentation Request
Admit Date: 12/29/24 15:57
Dear Doctor Kevin,
Please review the following and provide your response in the progress notes.
Clinical Indicators:
Pt admitted with Severe Hypernatremia/PNA /Metabolic encephalopathy
Documented per [facility]OCN note 01/01, ' Patient admitted with: small stage 2 sacral ulcer, base pink and slightly open, scant drainage....Plan: Foams applied to sacrum .....'
Physician documentation of the type and location of wounds is required for compliant documentation. Based on the above clinical findings and your assessment, please provide the following in your progress note:
1. Location of the ulcer/wound, including laterality.
2. Type (etiology) of ulcer/wound:
- Pressure (decubitus) ulcer
- Non-pressure ulcer
- Other ( please specify)
Use of terms such as suspected, likely, concern for, or probable (associated with a specific diagnosis that is being evaluated, monitored, or treated as if it exists) are acceptable and can be coded in the inpatient setting, when documented at the
time of discharge.
Thank you,
Kelly Kirk RN
CDI Specialist
[facility] [employer]
Please use your independent medical judgment in providing your response.
*Source: National Pressure Ulcer Advisory Panel (NPUAP)
[2025-01-01 20:01] VITALS: BP 147/80
[2025-01-01 23:00] VITALS: BP 139/69
--- NOTE | 2025-01-01 23:46 | PTCARENOTE ---
Neuro checks q 4 hours. Lethargic, unable to assess orientation due to patient being nonverbal. Patient frequently moans out. x 1 dose PRN ativan administered. NPO per INTERVENTIONAL NEURORADIOLOGIST due to lethargy. Patient will be re-evaluated tomorrow, 01/02. Q 2 hour turns.
Incontinence care completed. Bed alarm on. Bed in lowest position. All patient needs met.
[2025-01-02] MEDS: NSS (PRESERVATIVE FREE) IV (03:11)
[2025-01-02] MEDS: ATIVAN 0.25 MG IV ×3 (03:11→18:24)
--- NOTE | 2025-01-02 03:14 | PTCARENOTE ---
Patient yelling and moaning out for several hours. Per provider notes, this is patient's baseline and patient is typically on scheduled Ativan. Patient's scheduled Ativan discontinued, today, due to lethargy. This RN did give patient a dose of her
PRN IV ativan at 2122 yet, patient is still disruptive to her roommate and other patients--not lethargic in the slightest. Provider notified. One time dose IV Ativan for NOW ordered.
[2025-01-02] MEDS: NSS (PRESERVATIVE FREE) 0.125 ML IV (03:17)
[2025-01-02 03:44] VITALS: BP 106/68
[2025-01-02] MEDS: ZOSYN 50 IV ×4 (05:14→23:33)
[2025-01-02 06:00] VITALS: BMI 15.7
[2025-01-02 08:01] VITALS: BP 137/69
--- NOTE | 2025-01-02 09:33 | PTOTSP ---
Dysphagia Therapy
Impression: Signs concerning for oral/pharyngeal dysphagia and possible aspiration, most prevalent with thin liquid trials. Cannot rule out silent aspiration w/ other textures for which patient may be at an elevated risk given Corticobasal
syndrome. Patient with possible signs of aspiration complications (PNA). Video swallow study recommended.
Recommendations:
1. NPO
2. Medications via non-oral means
3. Oral care 3x daily
4. Video swallow study to asses oral/pharyngeal swallow and develop tx plan
5. Hold aspiration risk hydration protocol pending video swallow study results
[2025-01-02] MEDS: OSCAL 500 + D PO ×2 (09:55→20:56)
[2025-01-02] MEDS: VITAMIN D3 (cholecalciferol) PO (09:56)
[2025-01-02] MEDS: HEPARIN 5000 UNITS SC ×2 (09:57→20:46)
[2025-01-02 10:48] LABS: % Eosinophils 4.4 % (0-6); % Immature Granulocytes 0.3 % (0-0.5); % Monocytes 9.4 % (1.7-9.3); % Neutrophils 64.9 % (42.2-75.2); Absolute Basophils 0.1 10^3/uL (0-0.2); Absolute Eosinophils 0.3 10^3/uL (0-0.7); Absolute Lymphocytes 1.2 10^3/uL (1.2-3.4); Absolute Monocytes 0.6 10^3/uL (0.1-0.6); Absolute Neutrophils 3.8 10^3/uL (1.4-6.5); Hemoglobin 12.4 g/dL (12.0-16.0); Mean Corp Hgb Conc. 35.4 g/dL (33.0-37.0); Mean Corpuscular Hgb 31.1 pg (27.0-31.0); Mean Corpuscular Volume 87.7 fL (81.0-99.0); Nucleated Red Blood Cells % 0 %; Red Blood Cell Count 3.99 10^6/uL (4.20-5.40); Red Cell Dist. Width 12.2 % (11.5-14.5); White Blood Cell Count 5.9 10^3/uL (4.8-10.8)
[2025-01-02 10:52] VITALS: BP 130/60
--- NOTE | 2025-01-02 11:36 | PTOTSP ---
Videofluoroscopic swallow study
Summary: Moderate oral, severe pharyngeal dysphagia with small volumes of silent aspiration of all consistencies and absent to ineffective cued cough. Prognosis for improvement is suspected to be poor given likely etiology (i.e., Corticobasal
syndrome form of Parkinson's).
Risk for recurrent aspiration is elevated due to fragility, dependence for feeding, and ineffective sensory response/cough. Risk for complications from aspiration are also elevated given ineffective cough, fragility, and dependence for oral care.
Recommendations:
1. NPO pending further goals of care discussions
2. Oral care 3-5x daily
3. Medications via non-oral means
4. If opting for PO for comfort consider L4 puree, L0 thin liquids via careful spoon feeding and/or straw pipette
5. Dysphagia tx for education and f/u pending GOC discussions
--- NOTE | 2025-01-02 11:41 | W.PN.HOSP.TC ---
Addendum entered and electronically signed by Eric Brown MD 01/02/25 16:13:
should read as 'Change in mental status due to metabolic encephalopathy secondary to hypernatremia and PNA'
Original Note:
Today's Communication/Plan
-
Monitor vital signs
see plan
CMP pending
VSE with silent aspiration, discussed with spouse. Okay for comfort feeds at this time.
Hospice evaluation
Assessment / Plan
Assessment / Plan
General: Lethargic
HEENT: NormoCephalic, Anicteric, PERRLA and Other (Dry oral mucosa)
Respiratory: Clear; No Wheezes, Rales, Rhonchi or Crackles
Cardiac: S1/S2 and Regular Rhythm; No Murmur, Rub, Gallop
GI: Soft, Non Tender, Non Distended, Normal Bowel Sounds
Musculoskeletal:No Edema
Neuro: AAOX1
Psych: Calm and Other
Change in mental status due to metabolic encephalopathy secondary to hyponatremia and PNA; Per facility patient is mostly bedbound, barely will take steps with rolling walker with assistance. Staff has to feed her. Totally dependent for ADL S
Also severely deconditioned;
#Severe Hyponatremia Due to Dehydration
-Neurochecks every 4 hours
dc further fluids
follow bmp
PT/OT
monitor Na
nephrology following
CXR with PNA; speech following. npo for now. VSE 01/02 with silent aspiration. speech rec NPO unless go on comfort feeds. Called Spouse and son, awaiting call back
dec standing Ativan to Q12hr; montior
Suspect function Quadraplegia at this point
Severe protein calorie malnutrition
PNA
CXR noted
unclear if aspiration; speech following
started Zosyn
bcx drawn on admission NGTD
#Recent UTI
12/17/24 started and then completed cefdinir
-UA negative
#Corticobasal syndrome form of Parkinson's Dx 2022 [facility]
#Hx Falls
-Transfers via wheelchair
#Dementia with mood disorders on chronic BENZO's
Parkinson's corticobasal syndrome
#Depression
-Stopped talking in Oct per
- screams occasionally
-Make lorazepam as needed
-When able to swallow may resume lorazepam 0.25 mg every 8 hours as needed, clonazepam 0.5 mg p.o. twice daily, Lexapro 20 mg daily
-before admission Is on pureed diet ,thickened liquids per , crushed meds with apple sauce or pudding
speech following; rec NPO; VSE 01/02 with silent aspiration. speech rec NPO unless go on comfort feeds. Called Spouse and son, awaiting call back
#Hypertension
-Continue metoprolol succinate 50 mg daily, amlodipine 2.5 mg daily with hold parameters if able to swallow
IV as needed hydralazine SBP>165
#Hyperlipidemia
-Continue simvastatin 20 mg at bedtime
#Hypothyroidism
TSH wnl
-Continue levothyroxine 50 mcg p.o. daily if tolerate PO; if unable and family wants full care then will switch to IV
#Bowel obstruction
Continue senna 2 capsules at bedtime as needed constipation
# Dry eye syndrome
-Artificial tears
small stage 2 sacral ulcer; [employer]
#Hx chronic pain
Hold tramadol 25 mg p.o. every 6 hours as needed moderate pain due to sedation
May give Tylenol as needed
#Insomnia
Hold melatonin due to sedation
DNR per NAVID
Discussed with spouse 12/31,01/01 that if patient does not improve then likely palliative/hospice route will be appropriate. He understands that patient prognosis is worsening given Parkinson's dementia.
01/02: VSE 01/02 with silent aspiration. speech rec NPO unless go on comfort feeds. Spoke with spouse and discussed prognosis is guarded at this time and there is no meaningful recovery. He is okay with starting comfort feeds with pur�ed diet at this
time which patient was on prior to coming to the hospital. Will also consult hospice evaluation.
I spent a total of 52 minutes with the patient or on the floor. More than 50% of this time involved counseling and coordination of care.
Anticipated Discharge: 24 - 48 hours
Subjective/Interval History
-
Date of Service: January 02, 2025
Bit more awake and alert today
Objective Data
-
Labs:
Laboratory Results
01/02/25 01/02/25
06:00 10:02
WBC 5.9
Hgb 12.4
Hct 35.0 L
Plt Count
Sodium Pending
Potassium Pending
Chloride Pending
Carbon Dioxide Pending
BUN Pending
Creatinine Pending
Glucose Pending
Calcium Pending
Total Bilirubin Pending
AST Pending
ALT Pending
Alkaline Phosphatase Pending
Vital Signs:
Vital Signs
Temp Pulse Resp BP Pulse Ox
98.3 F 80 18 130/60 96
01/02/25 10:52 01/02/25 10:52 01/02/25 10:52 01/02/25 10:52 01/02/25 10:52
I&O
01/01/25 01/02/25 01/03/25
06:59 06:59 06:59
Intake Total 1792 / 1792 620 / 620
Balance 1792 / 1792 620 / 620
[2025-01-02 12:13] LABS: ALT (SGPT) 30 U/L (0-35); AST (SGOT) 28 U/L (14-36); Albumin 3.3 g/dl (3.5-5.0); Alkaline Phosphatase 76 U/L (38-126); Blood Urea Nitrogen 12 mg/dl (7-17); Calcium 8.5 mg/dl (8.4-10.2); Carbon Dioxide 17 mmol/L (22-30); Chloride 116 mmol/L (98-107); Estimated Creatinine Clearance 42 ml/min; Glucose 83 mg/dl (70-99); Potassium 4.3 mmol/L (3.5-5.1); Sodium 140 mmol/L (135-145); Total Bilirubin 0.8 mg/dl (0.2-1.3); Total Protein 5.8 g/dl (6.3-8.2); eGFR > 60.00
--- NOTE | 2025-01-02 14:11 | CM ---
CM reviewed chart, received consult for hospice. Patients seen bedside, aware of hospice referral. Per [facility], do not contract with [facility]. Per Duong, Director at [place], work with [facility]. [facility] spoke with Citlali Kimbrough
([phone]), will fax clinicals for review to [phone]. CM will continue to follow for all discharge planning needs.
Plan; clinicals faxed to [facility], will await confirmation ability to accept, return to [facility]
--- NOTE | 2025-01-02 14:38 | W.PN.NEPH.PH ---
Today's Communication / Plan
-
BMP in the a.m.
Assessment/Plan
-
Assessment
Parkinson's corticobasal syndrome
Dementia
Hyponatremia
Hypertension
Hypercalcemia
Lactic acidosis
Metabolic alkalosis
Plan
urine studies suggest she was not getting enough free water
Sodium 138 discontinue D5W
follow BMP
Still with poor appetite.
Pur�e diet ordered.
May need to restart on maintenance D5W.
Discussed with her and as this is unfortunate situation. If she does not eat more and hydrate herself her sodium is going to be an issue again.
Short of feeding tube which he would not want will need to consider hospice as he is aware
-
-
Date of Service: January 02, 2025
CC / HPI / ROS
-
Chief Complaint:
hypernatremia
History of Present Illness:
Na down and within normal limit
BP stable
no po intake
Opens eyes today
Review of Systems:
no fever
incontinent
Labs
-
Labs:
WBC 5.9 10^3/uL (4.8-10.8) 01/02/25 10:02
RBC 3.99 10^6/uL (4.20-5.40) L 01/02/25 10:02
Hgb 12.4 g/dL (12.0-16.0) 01/02/25 10:02
Hct 35.0 % (37.0-47.0) L 01/02/25 10:02
Plt Count 10^3/uL (130-400) 01/02/25 10:02
Sodium 140 mmol/L (135-145) 01/02/25 11:45
Potassium 4.3 mmol/L (3.5-5.1) D 01/02/25 11:45
Chloride 116 mmol/L (98-107) H 01/02/25 11:45
Carbon Dioxide 17 mmol/L (22-30) L 01/02/25 11:45
BUN 12 mg/dl (7-17) 01/02/25 11:45
Creatinine 0.7 mg/dL (0.6-1.0) 01/02/25 11:45
eGFR > 60.00 01/02/25 11:45
Glucose 83 mg/dl (70-99) 01/02/25 11:45
Calcium 8.5 mg/dl (8.4-10.2) 01/02/25 11:45
Albumin 3.3 g/dl (3.5-5.0) L 01/02/25 11:45
Physical Exam
-
Vital Signs:
Vital Signs
Temp Pulse Resp BP Pulse Ox
98.3 F 80 18 130/60 96
01/02/25 10:52 01/02/25 10:52 01/02/25 10:52 01/02/25 10:52 01/02/25 10:52
Cardiovascular:: Regular rate and rhythm
Respiratory:: Bilateral: Coarse
Lung Excursion:: Normal
Abdomen:: Nontender and Soft
Bowel Sounds:: Normal
Extremity Edema:: None: Bilateral:
--- NOTE | 2025-01-02 15:12 | HOSPNOTE ---
Per Attending, comfort measures are to begin today. Will monitor over the next 24 hours and reassess inpatient hospice eligibility tomorrow. Left VM for spouse Freda to explain this plan. CM and Attending are updated. More information to follow after
reevaluation tomorrow.
[2025-01-02 15:38] VITALS: BP 121/74
[2025-01-02] MEDS: KLONOPIN 0.5 MG PO (20:46)
[2025-01-02 23:30] VITALS: BP 141/76
[2025-01-03] MEDS: SYNTHROID 50 MCG PO (05:40)
[2025-01-03] MEDS: ZOSYN 50 IV (05:40)
[2025-01-03 05:56] VITALS: BMI 16.9
[2025-01-03 06:43] VITALS: BP 143/67
[2025-01-03] MEDS: KLONOPIN 0.5 MG PO (09:07)
[2025-01-03] MEDS: OSCAL 500 + D 500 MG PO (09:07)
[2025-01-03] MEDS: HEPARIN 5000 UNITS SC (09:07)
[2025-01-03] MEDS: VITAMIN D3 (cholecalciferol) 25 MCG PO (09:07)
--- NOTE | 2025-01-03 10:29 | W.PN.NEPH.PH ---
Today's Communication / Plan
-
follow BMP
Assessment/Plan
-
Assessment
Parkinson's corticobasal syndrome
Dementia
Hyponatremia
Hypertension
Hypercalcemia
Lactic acidosis
Metabolic alkalosis
Plan
urine studies suggest she was not getting enough free water
follow BMP
Theoretically, she likely could have sufficient oral intake of fluid and calories but would require a level of care that is higher than she would receive at a alf
Previously Dr Anthony discussed with her and as this is unfortunate situation. If she does not eat more and hydrate herself her sodium is going to be an issue again.
Short of feeding tube which he would not want will need to consider hospice as he is aware
-
-
Date of Service: January 03, 2025
CC / HPI / ROS
-
Chief Complaint:
hypernatremia
History of Present Illness:
Na 140 stable
BP stable
K improved
Opens eyes today
Review of Systems:
no fever
incontinent
eats a little when fed
Labs
-
Labs:
WBC 5.9 10^3/uL (4.8-10.8) 01/02/25 10:02
RBC 3.99 10^6/uL (4.20-5.40) L 01/02/25 10:02
Hgb 12.4 g/dL (12.0-16.0) 01/02/25 10:02
Hct 35.0 % (37.0-47.0) L 01/02/25 10:02
Plt Count 10^3/uL (130-400) 01/02/25 10:02
Sodium 140 mmol/L (135-145) 01/02/25 11:45
Potassium 4.3 mmol/L (3.5-5.1) D 01/02/25 11:45
Chloride 116 mmol/L (98-107) H 01/02/25 11:45
Carbon Dioxide 17 mmol/L (22-30) L 01/02/25 11:45
BUN 12 mg/dl (7-17) 01/02/25 11:45
Creatinine 0.7 mg/dL (0.6-1.0) 01/02/25 11:45
eGFR > 60.00 01/02/25 11:45
Glucose 83 mg/dl (70-99) 01/02/25 11:45
Calcium 8.5 mg/dl (8.4-10.2) 01/02/25 11:45
Albumin 3.3 g/dl (3.5-5.0) L 01/02/25 11:45
Physical Exam
-
Vital Signs:
Vital Signs
Temp Pulse Resp BP Pulse Ox
98.0 F 72 14 143/67 100
01/03/25 06:43 01/03/25 06:43 01/03/25 06:43 01/03/25 06:43 01/03/25 06:43
Cardiovascular:: Regular rate and rhythm
Respiratory:: Bilateral: Coarse
Lung Excursion:: Normal
Abdomen:: Nontender and Soft
Bowel Sounds:: Normal
Extremity Edema:: None: Bilateral:
--- NOTE | 2025-01-03 10:37 | W.PN.HOSP.TC ---
Addendum entered and electronically signed by Eric Brown MD 01/03/25 12:29:
Time of discharge 38 minutes
Addendum entered and electronically signed by Eric Brown MD 01/03/25 10:55:
should read as 'Change in mental status due to metabolic encephalopathy secondary to hypernatremia and PNA'
Original Note:
Today's Communication/Plan
-
Monitor vital signs see plan
Hospice appropriate
Discussed with spouse
performing arts road manager for disposition
Assessment / Plan
Assessment / Plan
General: Lethargic
HEENT: NormoCephalic, Anicteric, PERRLA and Other (Dry oral mucosa)
Respiratory: Clear; No Wheezes, Rales, Rhonchi or Crackles
Cardiac: S1/S2 and Regular Rhythm; No Murmur, Rub, Gallop
GI: Soft, Non Tender, Non Distended, Normal Bowel Sounds
Musculoskeletal:No Edema
Neuro: AAOX1
Psych: Calm and Other
Change in mental status due to metabolic encephalopathy secondary to hyponatremia and PNA; Per facility patient is mostly bedbound, barely will take steps with rolling walker with assistance. Staff has to feed her. Totally dependent for ADLS
Also severely deconditioned;
#Severe Hyponatremia Due to Dehydration
-Neurochecks every 4 hours
dc further fluids
follow bmp
PT/OT
monitor Na
nephrology following
CXR with PNA; speech following. npo for now. VSE 01/02 with silent aspiration. speech rec NPO unless go on comfort feeds. Spoke to spouse 01/02. Decision made to start comfort feeds with pur�ed diet. agreeable for hospice eval. Cm trying to
see if can go back on hospice.
Patient able to tolerate p.o., started p.o. clonazepam. Ativan as needed
Suspect function Quadraplegia at this point
Severe protein calorie malnutrition
PNA
CXR noted
suspect aspiration; speech following
change abx to PO augmentin to complete course
bcx drawn on admission NGTD
#Recent UTI
12/17/24 started and then completed cefdinir
-UA negative
#Corticobasal syndrome form of Parkinson's Dx 2022 [facility]
#Hx Falls
-Transfers via wheelchair
#Dementia with mood disorders on chronic BENZO's
Parkinson's corticobasal syndrome
#Depression
-Stopped talking in Oct per
- screams occasionally
-Make lorazepam as needed
-When able to swallow may resume lorazepam 0.25 mg every 8 hours as needed, clonazepam 0.5 mg p.o. twice daily, Lexapro 20 mg daily
-before admission Is on pureed diet ,thickened liquids per , crushed meds with apple sauce or pudding
speech following; rec NPO; VSE 01/02 with silent aspiration. speech rec NPO unless go on comfort feeds. Spoke to spouse 01/02. Decision made to start comfort feeds with pur�ed diet. agreeable for hospice eval. Cm trying to see if can go back
on hospice.
#Hypertension
-Continue metoprolol succinate 50 mg daily, amlodipine 2.5 mg daily with hold parameters if able to swallow
IV as needed hydralazine SBP>165
#Hyperlipidemia
-Continue simvastatin 20 mg at bedtime
#Hypothyroidism
TSH wnl
-Continue levothyroxine 50 mcg p.o. daily
#Bowel obstruction
Continue senna 2 capsules at bedtime as needed constipation
# Dry eye syndrome
-Artificial tears
small stage 2 sacral ulcer; [employer]
#Hx chronic pain
Hold tramadol 25 mg p.o. every 6 hours as needed moderate pain due to sedation
May give Tylenol as needed
#Insomnia
Hold melatonin due to sedation
DNR per NAVID
Discussed with spouse 12/31,01/01 that if patient does not improve then likely palliative/hospice route will be appropriate. He understands that patient prognosis is worsening given Parkinson's dementia.
01/02: VSE 01/02 with silent aspiration. speech rec NPO unless go on comfort feeds. Spoke with spouse and discussed prognosis is guarded at this time and there is no meaningful recovery. He is okay with starting comfort feeds with pur�ed diet at this
time which patient was on prior to coming to the hospital. Will also consult hospice evaluation.
01/03: Discussed with spouse. Agreeable on hospice. performing arts road manager to find out if patient can go back to previous facility on hospice.
Anticipated Discharge: Today
Subjective/Interval History
-
Date of Service: January 03, 2025
awake
Objective Data
-
Vital Signs:
Vital Signs
Temp Pulse Resp BP Pulse Ox
98.0 F 72 14 143/67 100
01/03/25 06:43 01/03/25 06:43 01/03/25 06:43 01/03/25 06:43 01/03/25 06:43
I&O
01/02/25 01/03/25 01/04/25
06:59 06:59 06:59
Intake Total 620 / 620 50 / 50
Balance 620 / 620 50 / 50
--- NOTE | 2025-01-03 10:54 | HOSPNOTE ---
Patient was sitting up in bed being fed oatmeal. The patient is hospice appropriate and may return to [facility] with their preferred hospice provider. CM did update [facility] yesterday with a possible return today.
[2025-01-03] MEDS: AUGMENTIN 875 MG/125 MG 1 TABLET PO (11:16)
--- NOTE | 2025-01-03 12:28 | W.DCSUMMARY ---
Discharge Summary
Discharge Data
Date of Admission: 12/29/24
Date of Discharge: 01/03/25
-
Pending Results: No
Hospital Course
79-year-old female with past medical history of corticobasal syndrome, Parkinson's disease, dementia with mood disorder, depression, hyperlipidemia, hypothyroidism, bowel obstruction, dry and syndrome, chronic pain, ambulatory dysfunction came to
the hospital with change in mental status due to metabolic encephalopathy secondary to hyponatremia and pneumonia. Patient was initially put on D5 water which continue to improve her sodium. Patient was seen by nephrology throughout
hospitalization. Patient also had pneumonia for which she was seen by speech therapy initially was recommended NPO. Patient then later got video swallow study which showed silent aspiration. This is likely secondary to patient worsening
Parkinson's dementia with dysphagia. This was discussed with patient and spouse who understands the risk of aspiration and no meaningful recovery and wanted us to start patient on comfort feeds with pur�ed diet. Given patient clinical status,
hospice was recommended which patient spouse agreed. Patient was then later discharged to previous living facility to be signed on hospice.
Discharge Plan
-
Patient Disposition: Other
Discharge Diagnosis/Procedures: Change in mental status due to metabolic encephalopathy secondary to hypernatremia and PNA
Severe protein calorie malnutrition
Pneumonia
Corticobasal syndrome, Parkinson's disease
Dementia with mood disorders
Depression
Diet: As tolerated
Activity: As tolerated
Driving Restrictions: As prior to admission
Bathing Restrictions: None
Other Services: Hospice
Activity Restrictions/Additional Instructions:
Wound Care Instructions
Sacrum: clean with soap and water, silicone foam change q 2-3 days or if soiled. If foam does not stay then barrier cream bid and prn incontinence.
L hip: open to air, if starts to drain add silicone foam and change q 2-3 days
encourage protein in diet
Air mattress if not hospice
Turning schedule
Please follow-up with hospice
Referrals:
Pearlstein,Cristofer, DO [Family Provider] - in less than 1 week
Prescriptions:
New
acetaminophen 325 mg Tablet
650 mg PO Q4HPRN PRN (Reason: mild pain/WILKERSON/temp> 100.4F) Qty: 0 0RF
amoxicillin-pot clavulanate 875-125 mg Tablet
1 tab PO Q12 Qty: 6 0RF
Continued
levothyroxine 50 MCG tablet
50 mcg PO DAILY
simvastatin 20 MG tablet
20 mg PO HS
metoprolol succinate 50 mg Tablet Extended Release 24 Hr
50 mg PO DAILY
clonazepam 0.5 mg Tablet
0.5 mg PO BID
amlodipine 2.5 mg Tablet
2.5 mg PO DAILY
escitalopram oxalate 20 mg Tablet
20 mg PO DAILY
melatonin 5 mg Tablet
5 mg PO HS
cholecalciferol (vitamin D3) 25 mcg (1,000 unit) Tablet
25 mcg PO DAILY
lorazepam 0.5 mg Tablet
0.25 mg PO Q6HPRN PRN (Reason: anxiety)
tramadol 25 mg Tablet
25 mg PO Q6HPRN PRN (Reason: moderate pain)
sennosides-docusate sodium [Senna-S] 8.6-50 mg Tablet
2 tab-cap PO HSPRN PRN (Reason: constipation)
calcium carbonate-vitamin D3 [Calcium 600 + D(3)] 600 mg-10 mcg (400 unit) Tablet
1 tab PO BID
Discharge Orders:
Discharge Patient (As Directed); Ordered 01/03/25
Ordered By: Eric Brown
Discharge Date and Time
Discharge Date/Time: 01/03/25 14:21
Print Language: VENEZUELAN
--- NOTE | 2025-01-03 13:27 | CM ---
Patient to return to [facility] today at 2pm on [facility], update provided to Citlali at [facility]. manager transfusion spoke with [address] admissions and spouse, Freda. KIESHA DNR has been completed and placed on chart.
Plan; Back to [address] on [facility].
[address]
Report [phone]
--- NOTE | 2025-01-03 13:57 | PTCARENOTE ---
report given to Nurse Eric at [facility]. report number [phone]
[2025-01-03 14:01] VITALS: BP 145/89
== END 2025-01-03 14:21 | disposition other institution (70) | DRG 640 ==
LOC: 4 WEST ACU 15:57
PROVIDERS: Clinical Nurse Specialist Family Health; Registered Nurse; ADMITTING PHYSICIAN Internal Medicine; ATTENDING PHYSICIAN Internal Medicine; CONSULT PHYSICIAN Specialist; EMERGENCY PHYSICIAN Student in an Organized Health Care Education/Training Program; FAMILY PHYSICIAN Psychiatry & Neurology Neurology
DX: E87.1 Hypo-osmolality and hyponatremia (principal); E43 Unspecified severe protein-calorie malnutrition; G93.41 Metabolic encephalopathy; J18.9 Pneumonia, unspecified organism; R53.2 Functional quadriplegia; F02.83 Dementia in other diseases classified elsewhere, unspecified severity, with mood disturbance; Z68.1 Body mass index [BMI] 19.9 or less, adult; E87.3 Alkalosis; E03.9 Hypothyroidism, unspecified; G89.4 Chronic pain syndrome; G20.A1 Parkinson's disease without dyskinesia, without mention of fluctuations; R13.10 Dysphagia, unspecified; L89.152 Pressure ulcer of sacral region, stage 2; I10 Essential (primary) hypertension; E87.4 Mixed disorder of acid-base balance; E83.52 Hypercalcemia; E86.0 Dehydration; E78.00 Pure hypercholesterolemia, unspecified; Z66 Do not resuscitate
CPT/HCPCS: 51701; 70450; 71045; 74230; 80048; 80053; 81003; 81015; 82570; 82962; 83605; 83735; 83935; 84295; 84300; 84443; 84484; 85025; 87040; 87070; 87086; 87502; 87811; 92526; 92610; 92611; 93005; 94760; 96374; 99285